=== PATIENT | female | born 1990 | race American Indian/Alaskan Native ===

== ENCOUNTER 2017-02-22 18:42 | Emergency (ER) | payer SELFPAY ==
[2017-02-22] MEDS ORDERED: NACL 0.9% 1000 ML 1,000 ML IV ONE (19:28)
[2017-02-22] MEDS ORDERED: TORADOL IV ONE (19:28)
[2017-02-22] MEDS ORDERED: DECADRON IV ONE (19:28)
--- NOTE | 2017-02-22 19:32 | Emergency Department Report ---
ED ENT HPI - General Chief complaint: Sore Throat Stated complaint: MARIA TERESA/THROAT PAIN Time Seen by Provider: 02/22/17 19:03 Source: patient Mode of arrival: Ambulatory Limitations: No Limitations - History of Present Illness Initial comments: This is a 26 erythema and presents with sore throat and left earache for the past 2 days. They state his sore throat has gotten worse since yesterday. Patient's complaining with difficulty swallowing, drooling, changes in voice. Patient denies nausea vomiting, shortness of breath, chest pain, fever, chills, abdominal pain or pelvic pain. Patient denies sick contact. Patient denies any allergic reaction. Patient took [id number] cough syrup that did not subside symptoms. Patient denies difficult breathing, dizziness, headache, loss of consciousness. At this time the patient does not seem toxic or ill in appearance. No signs distress noted. Patient is well-nourished. MD complaint: sore throat, ear pain -: Gradual, days(s) (2) Location: L ear, throat Severity: severe Severity scale (0 -10): 10 Quality: aching Consistency: constant Improves with: none Worsens with: swallowing Associated Symptoms: pain with swallowing, sore throat. denies: fever, cough, gum swelling, toothache, tinnitus, hearing loss, discharge from ear, rhinorrhea - Related Data Previous Rx's Medication Instructions Recorded Last Taken Type HYDROcodone/APAP 5-325 [[place] 1 each PO Q6HR PRN #14 tablet 05/06/15 Unknown Rx 5-325 mg TAB] Ibuprofen [Motrin 800 MG tab] 800 mg PO Q8HR PRN #30 tablet 05/06/15 Unknown Rx methOCARBAMOL [Robaxin TAB] 500 mg PO BID #20 tab 05/06/15 Unknown Rx Amoxicillin/K Clav Tab [Augmentin 1 tab PO Q12HR 10 Days 02/22/17 Unknown Rx 875 mg] Ibuprofen [Motrin 600 MG tab] 600 mg PO Q8H PRN 5 Days 02/22/17 Unknown Rx Prednisone [predniSONE] 40 mg PO QDAY 5 Days 02/22/17 Unknown Rx Allergies Allergy/AdvReac Type Severity Reaction Status Date / Time No Known Allergies Allergy Unverified 09/28/13 23:36 ED Dental HPI - General Chief complaint: Sore Throat Stated complaint: MARIA TERESA/THROAT PAIN Time Seen by Provider: 02/22/17 19:03 Source: patient Mode of arrival: Ambulatory Limitations: No Limitations - Related Data Previous Rx's Medication Instructions Recorded Last Taken Type HYDROcodone/APAP 5-325 [[place] 1 each PO Q6HR PRN #14 tablet 05/06/15 Unknown Rx 5-325 mg TAB] Ibuprofen [Motrin 800 MG tab] 800 mg PO Q8HR PRN #30 tablet 05/06/15 Unknown Rx methOCARBAMOL [Robaxin TAB] 500 mg PO BID #20 tab 05/06/15 Unknown Rx Amoxicillin/K Clav Tab [Augmentin 1 tab PO Q12HR 10 Days 02/22/17 Unknown Rx 875 mg] Ibuprofen [Motrin 600 MG tab] 600 mg PO Q8H PRN 5 Days 02/22/17 Unknown Rx Prednisone [predniSONE] 40 mg PO QDAY 5 Days 02/22/17 Unknown Rx Allergies Allergy/AdvReac Type Severity Reaction Status Date / Time No Known Allergies Allergy Unverified 09/28/13 23:36 ED Review of Systems ROS: Stated complaint: MARIA TERESA/THROAT PAIN Other details as noted in HPI Constitutional: denies: chills, fever Eyes: denies: eye pain, eye discharge, vision change ENT: ear pain (left), throat pain. denies: dental pain, hearing loss, epistaxis , congestion Respiratory: denies: cough, orthopnea, shortness of breath, SOB with exertion, SOB at rest, stridor, wheezing Cardiovascular: denies: chest pain, palpitations Endocrine: no symptoms reported Gastrointestinal: denies: abdominal pain, nausea, diarrhea Genitourinary: denies: urgency, dysuria, discharge Musculoskeletal: denies: back pain, joint swelling, arthralgia Skin: denies: rash, lesions Neurological: denies: headache, weakness, paresthesias Psychiatric: denies: anxiety, depression Hematological/Lymphatic: denies: easy bleeding, easy bruising ED Past Medical Hx - Past Medical History Previous Medical History?: Yes Hx Hypertension: Yes (during ) Hx Diabetes: Yes (gestational) Additional medical history: Diabetic and refuse to take medications for diabetes - Surgical History Past Surgical History?: No - Social History Smoking Status: Former Smoker Substance Use Type: Marijuana - Medications Home Medications: Home Medications Medication Instructions Recorded Confirmed Last Taken Type HYDROcodone/APAP 5-325 [[place] 1 each PO Q6HR PRN #14 tablet 05/06/15 Unknown Rx 5-325 mg TAB] Ibuprofen [Motrin 800 MG tab] 800 mg PO Q8HR PRN #30 tablet 05/06/15 Unknown Rx methOCARBAMOL [Robaxin TAB] 500 mg PO BID #20 tab 05/06/15 Unknown Rx Amoxicillin/K Clav Tab [Augmentin 1 tab PO Q12HR 10 Days 02/22/17 Unknown Rx 875 mg] Ibuprofen [Motrin 600 MG tab] 600 mg PO Q8H PRN 5 Days 02/22/17 Unknown Rx Prednisone [predniSONE] 40 mg PO QDAY 5 Days 02/22/17 Unknown Rx ED Physical Exam - General Limitations: No Limitations General appearance: alert, in no apparent distress - Head Head exam: Present: atraumatic, normocephalic - Eye Eye exam: Present: normal appearance, PERRL, EOMI - ENT ENT exam: Present: mucous membranes moist, TM's normal bilaterally, normal external ear exam - Expanded ENT Exam Expanded Mouth exam: Present: drooling, muffled voice, tongue normal. Absent: trismus, tongue elevation, laceration Teeth exam: Present: normal inspection Throat exam: Positive: tonsillar erythema, tonsillomegaly (4+), tonsillar exudate - Neck Neck exam: Present: normal inspection, full ROM, lymphadenopathy. Absent: tenderness, meningismus - Respiratory Respiratory exam: Present: normal lung sounds bilaterally. Absent: respiratory distress, wheezes, rales, rhonchi, stridor, chest wall tenderness, accessory muscle use, decreased breath sounds, prolonged expiratory - Cardiovascular Cardiovascular Exam: Present: regular rate, normal rhythm. Absent: systolic murmur, diastolic murmur, rubs, gallop - GI/Abdominal GI/Abdominal exam: Present: soft, normal bowel sounds. Absent: distended, tenderness, guarding, rebound, rigid - Extremities Exam Extremities exam: Present: normal inspection, full ROM, normal capillary refill. Absent: tenderness, pedal edema, joint swelling, calf tenderness - Back Exam Back exam: Present: normal inspection, full ROM. Absent: tenderness, CVA tenderness (R), CVA tenderness (L) - Neurological Exam Neurological exam: Present: alert, oriented X3, CN II-XII intact, normal gait - Psychiatric Psychiatric exam: Present: normal affect, normal mood - Skin Skin exam: Present: warm, dry, intact, normal color. Absent: rash ED Course Vital Signs 02/22/17 02/22/17 18:51 22:10 Temperature 98.5 F Pulse Rate 101 H 71 Respiratory 20 16 Rate Blood Pressure 138/77 Blood Pressure 126/71 [Left] O2 Sat by Pulse 100 100 Oximetry Vital Signs 02/22/17 02/22/17 18:51 22:10 Temperature 98.5 F Pulse Rate 101 H 71 Respiratory 20 16 Rate Blood Pressure 138/77 Blood Pressure 126/71 [Left] O2 Sat by Pulse 100 100 Oximetry - Reevaluation(s) Reevaluation #1: 02/22/17 22:08 Patient reevaluated. Patient stated feels much better with pain levels to a 10. Patient denies shortness of breath or dyspnea. Patient is currently smiling and talkative. No signs of distress noted. ED Medical Decision Making - Lab Data Result diagrams: 02/22/17 19:53 02/22/17 19:53 - Medical Decision Making Ed course: 25 erythema that presents with tonsillitis and pharyngitis 1- patient received clindamycin 600 mg IV in the ED 2- patient also received 1 L of normal saline 3- patient received 10 mg IV Decadron 4- CT of the neck with contrast obtained: Results: Bilateral tonsillar areas are prominent. No focal abscess is seen. Cervical lymphadenopathy is likely reactive. Thyroid gland appears mildly diffusely prominent. Correlate clinically. 5- Dr. Ramos was consulted about the patient and agrees to treatment plan 6- at this time the patient does not seem toxic or ill in appearance. No signs of distress noted. 7- patient received Augmentin, prednisone, ibuprofen at the time of discharge. 8- patient agrees to discharge treatment and plan of care. No further questions noted by the patient. Critical care attestation.: If time is entered above; I have spent that time in minutes in the direct care of this critically ill patient, excluding procedure time. ED Disposition Clinical Impression: Tonsillitis Pharyngitis Qualifiers: Pharyngitis/tonsillitis etiology: unspecified etiology Qualified Code(s): J02.9 - Acute pharyngitis, unspecified Disposition: DISCHARGED TO HOME OR SELFCARE Is pt being admited?: No Does the pt Need Aspirin: No Condition: Stable Instructions: Pharyngitis (ED), Tonsillitis (ED) Additional Instructions: Please follow-up with your primary care doctor in 3-5 days or if symptoms worsen report back to emergency room Take full course of antibiotics and steroids as prescribed Prescriptions: Amoxicillin/K Clav Tab [Augmentin 875 mg] 1 tab PO Q12HR 10 Days Ibuprofen [Motrin 600 MG tab] 600 mg PO Q8H PRN 5 Days PRN Reason: Pain Prednisone [predniSONE] 40 mg PO QDAY 5 Days Referrals: PRIMARY CAREMD [Primary Care Provider] - 3-5 Days [facility] [Outside] - 3-5 Days [facility] [Outside] - 3-5 Days DANE ANDRES MD [Staff Physician] - 3-5 Days Forms: Work/School Release Form(ED)
[2017-02-22 19:59] LABS: Basophils % (Auto) 0.5 % (0.0-1.8); Eosinophils % (Auto) 0.4 % (0.0-4.3); Mean Corpuscular HGB Conc 30 % (30-34); Platelet Count 289 K/mm3 (140-440); White Blood Count 18.5 K/mm3 (4.5-11.0)
[2017-02-22 20:01] LABS: Hematocrit 29.7 % (30.3-42.9); Hemoglobin 8.8 gm/dl (10.1-14.3); Mean Corpuscular Hemoglobin 19 pg (28-32); Mean Corpuscular Volume 63 fl (79-97)
[2017-02-22] MEDS ORDERED: CLEOCIN 600 MG/50 mL 600 MG/50 ML BAG IV ONE (20:05)
[2017-02-22 20:21] LABS: Anion Gap 17 mmol/L; BUN/Creatinine Ratio 8.57; Blood Urea Nitrogen 6 mg/dL (7-17); Calcium 9.3 mg/dL (8.4-10.2); Carbon Dioxide 25 mmol/L (22-30); Chloride 98.9 mmol/L (98-107); Glucose 112 mg/dL (65-100); Potassium 4.1 mmol/L (3.6-5.0); Sodium 137 mmol/L (137-145)
--- NOTE | 2017-02-22 21:58 | Cat Scan Report ---
FINAL REPORT PROCEDURE: CT NECK W CON TECHNIQUE: Computerized axial tomography of the soft tissue neck was performed following the IV injection of iodinated nonionic contrast. HISTORY: tonsillitis/rule out peritonsillar abscess COMPARISON: No prior studies are available for comparison. FINDINGS: Skull and scalp: Normal. Paranasal sinuses: Normal. Nasopharynx: Normal . Oral cavity: Bilateral tonsillar pillars are prominent. No focal abscess is identified. Epiglottis/vallecula: Normal . Larynx/pyriform sinuses: Normal . Thyroid gland: Thyroid gland appears mildly diffusely prominent. Lymph nodes: Bilateral cervical adenopathy. Bilateral level 2 cervical lymph nodes are enlarged, measuring up to 15 millimeters short axis. Salivary glands: Normal . Upper thorax: Normal . IMPRESSION: Bilateral tonsillar pillars are prominent. No focal abscess is seen. Cervical lymphadenopathy is likely reactive. Thyroid gland appears mildly diffusely prominent. Correlate clinically.
[2017-02-22 22:11] VITALS: BP 126/71
== END 2017-02-22 22:20 | disposition home or self-care (01) ==
LOC: ED 18:42
DX: J03.90 Acute tonsillitis, unspecified (principal); J02.9 Acute pharyngitis, unspecified
CPT/HCPCS: 36415; 70491; 80048; 84703; 85025; 87430; 96365; 96375; 99284; J1100; J1885; J7030; Q9967

== ENCOUNTER 2018-02-10 08:37 | Emergency (ER) | payer SELFPAY ==
[2018-02-10] MEDS ORDERED: DUONEB *Not for PRN Use IH ONE (11:57)
--- NOTE | 2018-02-10 12:00 | Emergency Department Report ---
Minor Respiratory - HPI Chief Complaint: Upper Respiratory Infection Stated Complaint: EAR CLOGGED, NOSE&COUGH PAIN Time Seen by Provider: 02/10/18 11:53 Duration: 3 Days Severity: moderate Minor Respiratory: Yes Rhinorrhea, Yes Able to Tolerate Fluids, Yes Ear Pain, Yes Cough, Yes Shortness of Breath, No Sore Throat, No Sick Contacts, No Hemoptysis, No Chest Pain, No Fever Other History: Reports URI sx with cough/wheezing x 3 days. ED Review of Systems ROS: Stated complaint: EAR CLOGGED, NOSE&COUGH PAIN Other details as noted in HPI Comment: All other systems reviewed and negative Constitutional: denies: chills, fever Eyes: denies: eye pain, eye discharge, vision change ENT: ear pain, congestion. denies: throat pain Respiratory: cough, shortness of breath, wheezing Cardiovascular: denies: chest pain, palpitations Endocrine: no symptoms reported Gastrointestinal: denies: abdominal pain, nausea, diarrhea Genitourinary: denies: urgency, dysuria, discharge Musculoskeletal: denies: back pain, joint swelling, arthralgia Skin: denies: rash, lesions Neurological: denies: headache, weakness, paresthesias Psychiatric: denies: anxiety, depression Hematological/Lymphatic: denies: easy bleeding, easy bruising ED Past Medical Hx - Past Medical History Hx Hypertension: Yes (during ) Hx Diabetes: Yes (gestational) Additional medical history: Diabetic and refuse to take medications for diabetes - Surgical History Past Surgical History?: No - Social History Smoking Status: Never Smoker Substance Use Type: None - Medications Home Medications: Home Medications Medication Instructions Recorded Confirmed Last Taken Type ALBUTEROL Inhaler [ProAir HFA 2 puff IH QID PRN #200 inhalation 02/10/18 Unknown Rx Inhaler] Amoxicillin/Potassium Clav 1 each PO BID #20 tablet 02/10/18 Unknown Rx [Augmentin 875-125 Tablet] Prednisone [predniSONE 10 mg 10 mg PO .TAPER #1 tab.ds.pk 02/10/18 Unknown Rx (6-Day Pack, 21 Tabs)] Minor Respiratory Exam - Exam General: Vital signs noted. No distress. Alert and acting appropriately. HEENT: Yes Moist Mucous Membranes, Yes Rhinorrhea, No Pharyngeal Erythema, No Pharyngeal Exudates, No Conjuctival Injection, No Frontal Tenderness, No Maxillary Tenderness Ear: Left TM Erythema, Both TM Bulge, Neither EAC Pain, Neither EAC Discharge Neck: Yes Supple, No Adenopathy Lungs: Yes Wheezes, Yes Cough, No Good Air Exchange, No Ronchi, No Stridor, No Labored Respirations, No Retractions, No Use of Accessory Muscles, No Other Abnormal Lung Sounds Heart: Yes Regular, No Murmur Abdomen: Yes Normal Bowel Sounds, No Tenderness, No Peritoneal Signs Skin: No Rash, No Edema Neurologic: Alert and oriented, no deficits. Musculoskeletal: Unremarkable. ED Course Vital Signs 02/10/18 09:16 Temperature 97.9 F Pulse Rate 88 Respiratory 18 Rate Blood Pressure 124/54 O2 Sat by Pulse 95 Oximetry - Reevaluation(s) Reevaluation #1: 02/10/18 13:33 Pt stable for d/c. ED Medical Decision Making - Radiology Data Radiology results: report reviewed naf - Medical Decision Making Pt presents with URI, Duoneb given w/ improvement in exam and sx. Will treat with abx, steroid, and inhaler prn. Supportive care discussed - Differential Diagnosis bronchitis, pna, sinusitis Critical care attestation.: If time is entered above; I have spent that time in minutes in the direct care of this critically ill patient, excluding procedure time. ED Disposition Clinical Impression: Acute sinusitis Qualifiers: Sinusitis location: unspecified location Recurrence: not specified as recurrent Qualified Code(s): J01.90 - Acute sinusitis, unspecified Acute bronchitis Qualifiers: Bronchitis organism: unspecified organism Qualified Code(s): J20.9 - Acute bronchitis, unspecified Disposition: TO HOME OR SELFCARE Is pt being admited?: No Condition: Good Instructions: Acute Bronchitis (ED), Sinusitis (ED) Prescriptions: ALBUTEROL Inhaler [ProAir HFA Inhaler] 2 puff IH QID PRN #200 inhalation PRN Reason: Shortness Of Breath Amoxicillin/Potassium Clav [Augmentin 875-125 Tablet] 1 each PO BID #20 tablet Prednisone [predniSONE 10 mg (6-Day Pack, 21 Tabs)] 10 mg PO .TAPER #1 tab.ds.pk Referrals: PRIMARY MD NELLA [Primary Care Provider] - 3-5 Days DANE SANCHEZ MD [Staff Physician] - 3-5 Days Time of Disposition: 13:37
--- NOTE | 2018-02-10 13:05 | XRay Report ---
CHEST 2 VIEWS INDICATION: Cough, shortness of breath. COMPARISON: None similar. FINDINGS: PA and lateral chest radiographs demonstrate normal cardiomediastinal silhouette. Clear lungs. Intact bones. CONCLUSION: No acute disease in the chest. Thank you for the opportunity to participate in this patient's care.
[2018-02-10 13:51] VITALS: BP 125/51
== END 2018-02-10 13:52 | disposition home or self-care (01) ==
LOC: ED 08:37
DX: J01.90 Acute sinusitis, unspecified (principal); J20.9 Acute bronchitis, unspecified
CPT/HCPCS: 71046; 94640; 96372; 99283; J2930

== ENCOUNTER 2018-10-23 16:58 | Emergency (ER) | payer MEDICAID ==
[2018-10-23 17:16] VITALS: BP 111/60
[2018-10-23] MEDS ORDERED: BICILLIN L-A IM STA (18:12)
[2018-10-23] MEDS ORDERED: DECADRON PO STA (18:12)
[2018-10-23] MEDS ORDERED: PERCOCET 5/325 PO STA (18:12)
--- NOTE | 2018-10-23 18:31 | Emergency Department Report ---
ED ENT HPI - General Chief complaint: Sore Throat Stated complaint: THROAT PAIN/FLU SYM Time Seen by Provider: 10/23/18 18:11 Source: patient Mode of arrival: Ambulatory Limitations: No Limitations - History of Present Illness Initial comments: 27-year-old female with emergency department complaining of continued sore throat abscess was department requesting more medication for pain. She was seen about 2 days ago and started on amoxicillin hemostased is still throbbing and pain with swallowing. She reports no drooling, trouble breathing. MD complaint: sore throat Location: throat Quality: constant Consistency: constant Improves with: none Worsens with: none Associated Symptoms: sore throat. denies: cough, gum swelling, toothache, pain with swallowing - Related Data Previous Rx's Medication Instructions Recorded Last Taken Type ALBUTEROL Inhaler (OR & NICU) 2 puff IH QID PRN #200 inhalation 02/10/18 Unknown Rx [ProAir HFA Inhaler] Amoxicillin/Potassium Clav 1 each PO BID #20 tablet 02/10/18 Unknown Rx [Augmentin 875-125 Tablet] Prednisone [predniSONE 10 mg 10 mg PO .TAPER #1 tab.ds.pk 02/10/18 Unknown Rx (6-Day Pack, 21 Tabs)] Lidocaine Viscous 2% 5 ml MM Q3H PRN #120 udc 10/23/18 Unknown Rx Allergies Allergy/AdvReac Type Severity Reaction Status Date / Time No Known Allergies Allergy Unverified 09/28/13 23:36 ED Dental HPI - General Chief complaint: Sore Throat Stated complaint: THROAT PAIN/FLU SYM Time Seen by Provider: 10/23/18 18:11 Source: patient Mode of arrival: Ambulatory Limitations: No Limitations - Related Data Previous Rx's Medication Instructions Recorded Last Taken Type ALBUTEROL Inhaler (OR & NICU) 2 puff IH QID PRN #200 inhalation 02/10/18 Unknown Rx [ProAir HFA Inhaler] Amoxicillin/Potassium Clav 1 each PO BID #20 tablet 02/10/18 Unknown Rx [Augmentin 875-125 Tablet] Prednisone [predniSONE 10 mg 10 mg PO .TAPER #1 tab.ds.pk 02/10/18 Unknown Rx (6-Day Pack, 21 Tabs)] Lidocaine Viscous 2% 5 ml MM Q3H PRN #120 udc 10/23/18 Unknown Rx Allergies Allergy/AdvReac Type Severity Reaction Status Date / Time No Known Allergies Allergy Unverified 09/28/13 23:36 ED Review of Systems ROS: Stated complaint: THROAT PAIN/FLU SYM Other details as noted in HPI Constitutional: denies: chills, fever Eyes: denies: eye pain, eye discharge, vision change ENT: throat pain. denies: ear pain Respiratory: denies: cough, shortness of breath, wheezing Cardiovascular: denies: chest pain, palpitations Endocrine: no symptoms reported Gastrointestinal: denies: abdominal pain, nausea, diarrhea Genitourinary: denies: urgency, dysuria, discharge Musculoskeletal: denies: back pain, joint swelling, arthralgia Skin: denies: rash, lesions Neurological: denies: headache, weakness, paresthesias Psychiatric: denies: anxiety, depression Hematological/Lymphatic: denies: easy bleeding, easy bruising ED Past Medical Hx - Past Medical History Hx Hypertension: Yes (during ) Hx Diabetes: Yes (gestational) Additional medical history: Diabetic and refuse to take medications for diabetes - Social History Smoking Status: Never Smoker Substance Use Type: None - Medications Home Medications: Home Medications Medication Instructions Recorded Confirmed Last Taken Type ALBUTEROL Inhaler (OR & NICU) 2 puff IH QID PRN #200 inhalation 02/10/18 Unknown Rx [ProAir HFA Inhaler] Amoxicillin/Potassium Clav 1 each PO BID #20 tablet 02/10/18 Unknown Rx [Augmentin 875-125 Tablet] Prednisone [predniSONE 10 mg 10 mg PO .TAPER #1 tab.ds.pk 02/10/18 Unknown Rx (6-Day Pack, 21 Tabs)] Lidocaine Viscous 2% 5 ml MM Q3H PRN #120 udc 10/23/18 Unknown Rx ED Physical Exam - General Limitations: No Limitations General appearance: alert, in no apparent distress - Head Head exam: Present: atraumatic, normocephalic - Eye Eye exam: Present: normal appearance, PERRL, EOMI Pupils: Present: normal accommodation - ENT ENT exam: Present: normal exam, mucous membranes moist, other (posterior pharynx erythema with some edema. Tongue and uvula is midline. Scant exudate) - Neck Neck exam: Present: normal inspection, lymphadenopathy - Respiratory Respiratory exam: Present: normal lung sounds bilaterally. Absent: respiratory distress, rales, rhonchi, chest wall tenderness, accessory muscle use - Cardiovascular Cardiovascular Exam: Present: regular rate, normal rhythm. Absent: systolic murmur, diastolic murmur, rubs, gallop - GI/Abdominal GI/Abdominal exam: Present: soft, normal bowel sounds. Absent: hyperactive bowel sounds, mass, pulsatile mass - Extremities Exam Extremities exam: Present: normal inspection, full ROM - Back Exam Back exam: Present: normal inspection - Neurological Exam Neurological exam: Present: alert, oriented X3 - Psychiatric Psychiatric exam: Present: normal affect, normal mood - Skin Skin exam: Present: warm, dry, intact, normal color. Absent: rash ED Course Vital Signs 10/23/18 17:13 Temperature 98.1 F Pulse Rate 76 Respiratory 18 Rate Blood Pressure 111/60 O2 Sat by Pulse 100 Oximetry ED Medical Decision Making - Medical Decision Making Patient reports some issues taken amoxicillin pills repetitively with a sore throat and presents for alternative treatment and medication help with the swelling. Discussed with her the treatment option for IM injection and disconti nuing the utilization of amoxicillin Critical care attestation.: If time is entered above; I have spent that time in minutes in the direct care of this critically ill patient, excluding procedure time. ED Disposition Clinical Impression: Strep pharyngitis Disposition: DC-01 TO HOME OR SELFCARE Is pt being admited?: No Does the pt Need Aspirin: No Condition: Stable Instructions: Strep Throat (ED) Referrals: [facility] [Provider Group] - 3-5 Days
== END 2018-10-23 19:26 | disposition home or self-care (01) ==
LOC: ED 16:58
DX: J02.0 Streptococcal pharyngitis (principal); I10 Essential (primary) hypertension; E11.9 Type 2 diabetes mellitus without complications
CPT/HCPCS: 96372; 99282; J0561; J1100

== ENCOUNTER 2019-01-07 09:07 | Emergency (ER) | payer MEDICAID ==
[2019-01-07 09:15] VITALS: BP 145/78
[2019-01-07] MEDS ORDERED: AUGMENTIN 875 MG PO ONE (09:32)
[2019-01-07] MEDS ORDERED: DECADRON IM ONE (09:32)
[2019-01-07] MEDS ORDERED: IBUPROFEN PO ONE (09:32)
[2019-01-07] MEDS ORDERED: LIDOCAINE VISCOUS 2% MM ONE (09:33)
[2019-01-07] MEDS ORDERED: BICILLIN L-A IM ONE (09:46)
--- NOTE | 2019-01-07 09:49 | Emergency Department Report ---
ED ENT HPI - General Chief complaint: Sore Throat Stated complaint: SORE THROAT Time Seen by Provider: 01/07/19 09:27 Source: patient Mode of arrival: Ambulatory Limitations: No Limitations - History of Present Illness Initial comments: This is a 28-year-old female nontoxic, well nourished in appearance, no acute signs of distress presents to the ED with c/o of sore throat. Patient describes sore throat as swallowing razer blades. Patient denies any fever, chills, headache, stiff neck, nausea, vomiting, chest pain, shortness of breath, numbness or tingling. Patient denies any drooling or hoarseness. Patient denies any allergies or significant past medical history. MD complaint: sore throat -: days(s) Location: throat Severity: mild Severity scale (0 -10): 8 Quality: aching Consistency: constant Improves with: none Worsens with: swallowing Associated Symptoms: pain with swallowing, sore throat. denies: fever, cough, gum swelling, toothache, tinnitus, hearing loss, discharge from ear, rhinorrhea - Related Data Previous Rx's Medication Instructions Recorded Last Taken Type ALBUTEROL Inhaler (OR & NICU) 2 puff IH QID PRN #200 inhalation 02/10/18 Unknown Rx [ProAir HFA Inhaler] Amoxicillin/Potassium Clav 1 each PO BID #20 tablet 02/10/18 Unknown Rx [Augmentin 875-125 Tablet] Prednisone [predniSONE 10 mg 10 mg PO .TAPER #1 tab.ds.pk 02/10/18 Unknown Rx (6-Day Pack, 21 Tabs)] Lidocaine Viscous 2% 5 ml MM Q3H PRN #120 udc 10/23/18 Unknown Rx Ibuprofen [Motrin] 600 mg PO Q8H PRN #20 tablet 01/07/19 Unknown Rx Nystas/Diphen/Xyl Visc/Mylanta 15 ml MM Q6H PRN 5 Days ml 01/07/19 Unknown Rx [Magic Mouthwash] Allergies Allergy/AdvReac Type Severity Reaction Status Date / Time No Known Allergies Allergy Unverified 09/28/13 23:36 ED Dental HPI - General Chief complaint: Sore Throat Stated complaint: SORE THROAT Time Seen by Provider: 01/07/19 09:27 Source: patient Mode of arrival: Ambulatory Limitations: No Limitations - Related Data Previous Rx's Medication Instructions Recorded Last Taken Type ALBUTEROL Inhaler (OR & NICU) 2 puff IH QID PRN #200 inhalation 02/10/18 Unknown Rx [ProAir HFA Inhaler] Amoxicillin/Potassium Clav 1 each PO BID #20 tablet 02/10/18 Unknown Rx [Augmentin 875-125 Tablet] Prednisone [predniSONE 10 mg 10 mg PO .TAPER #1 tab.ds.pk 02/10/18 Unknown Rx (6-Day Pack, 21 Tabs)] Lidocaine Viscous 2% 5 ml MM Q3H PRN #120 udc 10/23/18 Unknown Rx Ibuprofen [Motrin] 600 mg PO Q8H PRN #20 tablet 01/07/19 Unknown Rx Nystas/Diphen/Xyl Visc/Mylanta 15 ml MM Q6H PRN 5 Days ml 01/07/19 Unknown Rx [Magic Mouthwash] Allergies Allergy/AdvReac Type Severity Reaction Status Date / Time No Known Allergies Allergy Unverified 09/28/13 23:36 ED Review of Systems ROS: Stated complaint: SORE THROAT Other details as noted in HPI Constitutional: denies: chills, fever Eyes: denies: eye pain, eye discharge, vision change ENT: throat pain. denies: ear pain Respiratory: denies: cough, shortness of breath, wheezing Cardiovascular: denies: chest pain, palpitations Endocrine: no symptoms reported Gastrointestinal: denies: abdominal pain, nausea, diarrhea Genitourinary: denies: urgency, dysuria, discharge Musculoskeletal: denies: back pain, joint swelling, arthralgia Skin: denies: rash, lesions Neurological: denies: headache, weakness, paresthesias Psychiatric: denies: anxiety, depression Hematological/Lymphatic: denies: easy bleeding, easy bruising ED Past Medical Hx - Past Medical History Previous Medical History?: No Hx Hypertension: Yes (during ) Hx Diabetes: Yes (gestational) Additional medical history: Diabetic and refuse to take medications for diabetes - Surgical History Past Surgical History?: No - Social History Smoking Status: Current Some Day Smoker Substance Use Type: Marijuana - Medications Home Medications: Home Medications Medication Instructions Recorded Confirmed Last Taken Type ALBUTEROL Inhaler (OR & NICU) 2 puff IH QID PRN #200 inhalation 02/10/18 Unknown Rx [ProAir HFA Inhaler] Amoxicillin/Potassium Clav 1 each PO BID #20 tablet 02/10/18 Unknown Rx [Augmentin 875-125 Tablet] Prednisone [predniSONE 10 mg 10 mg PO .TAPER #1 tab.ds.pk 02/10/18 Unknown Rx (6-Day Pack, 21 Tabs)] Lidocaine Viscous 2% 5 ml MM Q3H PRN #120 udc 10/23/18 Unknown Rx Ibuprofen [Motrin] 600 mg PO Q8H PRN #20 tablet 01/07/19 Unknown Rx Nystas/Diphen/Xyl Visc/Mylanta 15 ml MM Q6H PRN 5 Days ml 01/07/19 Unknown Rx [Magic Mouthwash] ED Physical Exam - General Limitations: No Limitations General appearance: alert, in no apparent distress - Head Head exam: Present: atraumatic, normocephalic - Eye Eye exam: Present: normal appearance - Expanded ENT Exam Expanded Ear exam: Present: normal external inspection Mouth exam: Present: normal external inspection. Absent: drooling, trismus, muffled voice Teeth exam: Present: normal inspection Throat exam: Positive: tonsillar erythema, tonsillomegaly (2+), other (uvula m idline. No abscess or swelling noted.). Negative: tonsillar exudate, R peritonsillar mass, L peritonsillar mass - Neck Neck exam: Present: normal inspection, full ROM, lymphadenopathy (bilateral tonsillar). Absent: tenderness, meningismus - Respiratory Respiratory exam: Present: normal lung sounds bilaterally. Absent: respiratory distress, wheezes, rales, chest wall tenderness, accessory muscle use, decreased breath sounds, prolonged expiratory - Cardiovascular Cardiovascular Exam: Present: regular rate, normal rhythm, normal heart sounds. Absent: irregular rhythm, systolic murmur, diastolic murmur, rubs, gallop - Extremities Exam Extremities exam: Present: normal inspection, full ROM - Back Exam Back exam: Present: normal inspection, full ROM - Neurological Exam Neurological exam: Present: alert, oriented X3 - Psychiatric Psychiatric exam: Present: normal affect, normal mood - Skin Skin exam: Present: warm, dry, intact, normal color. Absent: rash ED Course Vital Signs 01/07/19 09:13 Temperature 99.6 F Pulse Rate 100 H Respiratory 22 Rate Blood Pressure 145/78 O2 Sat by Pulse 99 Oximetry - Reevaluation(s) Reevaluation #1: 01/07/19 09:50 Patient is speaking in full sentences with no signs of distress noted. ED Medical Decision Making - Medical Decision Making This is a 28-year-old female that presents with strep pharyngitis. Patient is stable was examined by me. There is no drooling. No tonsillar abscess noted. Uvula is midline. Strep swab positive. Patient received Bicillin IM in the ED. she also received Decadron for tonsillar inflammation. Vital signs are stable. Patient is not febrile and normal heart rate. Patient was instructed to Follow- up with a primary care doctor in 3-5 days or if symptoms worsen and continue return to emergency room as soon as possible. At time of discharge, the patient does not seem toxic or ill in appearance. No acute signs of distress noted. Patient agrees to discharge treatment plan of care. No further questions noted by the patient. Critical care attestation.: If time is entered above; I have spent that time in minutes in the direct care of this critically ill patient, excluding procedure time. ED Disposition Clinical Impression: Strep pharyngitis Disposition: DC- TO HOME OR SELFCARE Is pt being admited?: No Does the pt Need Aspirin: No Condition: Stable Instructions: Strep Throat (ED) Additional Instructions: Follow-up with a primary care/ENT doctor in 3-5 days or if symptoms worsen and continue return to emergency room as soon as possible. Prescriptions: Nystas/Diphen/Xyl Visc/Mylanta [Magic Mouthwash] 15 ml MM Q6H PRN 5 Days ml PRN Reason: Sore Throat Ibuprofen [Motrin] 600 mg PO Q8H PRN #20 tablet PRN Reason: Pain Referrals: PRIMARY MD NELLA [Referring] - 3-5 Days DANE ANDRES MD [Staff Physician] - 3-5 Days [facility] [Outside] - 3-5 Days [facility] [Outside] - 3-5 Days Forms: Work/School Release Form(ED)
== END 2019-01-07 10:32 | disposition home or self-care (01) ==
LOC: ED 09:07
DX: J02.0 Streptococcal pharyngitis (principal); F17.200 Nicotine dependence, unspecified, uncomplicated; F12.10 Cannabis abuse, uncomplicated; I10 Essential (primary) hypertension; E11.9 Type 2 diabetes mellitus without complications; Z79.899 Other long term (current) drug therapy
CPT/HCPCS: 87430; 96372; 99283; J0561; J1100

== ENCOUNTER 2019-07-23 19:13 | Emergency (ER) | payer SELFPAY ==
[2019-07-23] MEDS ORDERED: ONDANSETRON 4 MG ODT TAB PO ONE (20:46)
--- NOTE | 2019-07-23 20:53 | Emergency Department Report ---
ED ENT HPI - General Chief complaint: Sore Throat Stated complaint: SORE THROAT Time Seen by Provider: 07/23/19 20:46 Source: patient Mode of arrival: Ambulatory Limitations: No Limitations - History of Present Illness Initial comments: This is a 28-year-old female that presents to the ER with sore throat, fever, and vomiting for 3 days. Patient states is difficult to swallow. She denies any drooling or hoarseness. Reports vomiting started today anytime she attempt to drink something. Reports a history of recurrent strep throat. Patient denies any other symptoms. Denies any fever, chills, headache, nausea, vomiting, chest pain or SOB. Denies any other complaints. MD complaint: sore throat Onset/Timin -: days(s) Location: throat Severity: moderate Severity scale (0 -10): 10 Quality: stabbing Consistency: constant Improves with: none Worsens with: swallowing, eating Associated Symptoms: fever, pain with swallowing, sore throat. denies: cough, gum swelling, toothache, tinnitus, hearing loss, discharge from ear, rhinorrhea - Related Data Previous Rx's Medication Instructions Recorded Last Taken Type ALBUTEROL Inhaler (OR & NICU) 2 puff IH QID PRN #200 inhalation 02/10/18 Unknown Rx [ProAir HFA Inhaler] Amoxicillin/Potassium Clav 1 each PO BID #20 tablet 02/10/18 Unknown Rx [Augmentin 875-125 Tablet] Prednisone [predniSONE 10 mg 10 mg PO .TAPER #1 tab.ds.pk 02/10/18 Unknown Rx (6-Day Pack, 21 Tabs)] Lidocaine Viscous 2% 5 ml MM Q3H PRN #120 udc 10/23/18 Unknown Rx Nystas/Diphen/Xyl Visc/Mylanta 15 ml MM Q6H PRN 5 Days ml 01/07/19 Unknown Rx [Magic Mouthwash] Ibuprofen [Motrin 600 MG tab] 600 mg PO Q8H PRN #20 tablet 06/16/19 Unknown Rx Allergies Allergy/AdvReac Type Severity Reaction Status Date / Time No Known Allergies Allergy Verified 07/23/19 19:17 ED Dental HPI - General Chief complaint: Sore Throat Stated complaint: SORE THROAT Time Seen by Provider: 07/23/19 20:46 Source: patient Mode of arrival: Ambulatory Limitations: No Limitations - Related Data Previous Rx's Medication Instructions Recorded Last Taken Type ALBUTEROL Inhaler (OR & NICU) 2 puff IH QID PRN #200 inhalation 02/10/18 Unknown Rx [ProAir HFA Inhaler] Amoxicillin/Potassium Clav 1 each PO BID #20 tablet 02/10/18 Unknown Rx [Augmentin 875-125 Tablet] Prednisone [predniSONE 10 mg 10 mg PO .TAPER #1 tab.ds.pk 02/10/18 Unknown Rx (6-Day Pack, 21 Tabs)] Lidocaine Viscous 2% 5 ml MM Q3H PRN #120 udc 10/23/18 Unknown Rx Nystas/Diphen/Xyl Visc/Mylanta 15 ml MM Q6H PRN 5 Days ml 01/07/19 Unknown Rx [Magic Mouthwash] Ibuprofen [Motrin 600 MG tab] 600 mg PO Q8H PRN #20 tablet 06/16/19 Unknown Rx Allergies Allergy/AdvReac Type Severity Reaction Status Date / Time No Known Allergies Allergy Verified 07/23/19 19:17 ED Review of Systems ROS: Stated complaint: SORE THROAT Other details as noted in HPI Constitutional: fever. denies: chills ENT: throat pain. denies: ear pain, dental pain, hearing loss, epistaxis, congestion Respiratory: denies: cough, shortness of breath, wheezing Cardiovascular: as per HPI Gastrointestinal: nausea, vomiting. denies: abdominal pain, diarrhea Skin: denies: rash, lesions Neurological: denies: headache, weakness, paresthesias Psychiatric: denies: anxiety, depression ED Past Medical Hx - Past Medical History Hx Hypertension: Yes (during ) Hx Diabetes: Yes (gestational) Additional medical history: Diabetic and refuse to take medications for diabetes - Social History Smoking Status: Never Smoker Substance Use Type: Marijuana - Medications Home Medications: Home Medications Medication Instructions Recorded Confirmed Last Taken Type ALBUTEROL Inhaler (OR & NICU) 2 puff IH QID PRN #200 inhalation 02/10/18 Unknown Rx [ProAir HFA Inhaler] Amoxicillin/Potassium Clav 1 each PO BID #20 tablet 02/10/18 Unknown Rx [Augmentin 875-125 Tablet] Prednisone [predniSONE 10 mg 10 mg PO .TAPER #1 tab.ds.pk 02/10/18 Unknown Rx (6-Day Pack, 21 Tabs)] Lidocaine Viscous 2% 5 ml MM Q3H PRN #120 udc 10/23/18 Unknown Rx Nystas/Diphen/Xyl Visc/Mylanta 15 ml MM Q6H PRN 5 Days ml 01/07/19 Unknown Rx [Magic Mouthwash] Ibuprofen [Motrin 600 MG tab] 600 mg PO Q8H PRN #20 tablet 06/16/19 Unknown Rx ED Physical Exam - General Limitations: No Limitations General appearance: alert, in no apparent distress, obese (morbidly) - ENT ENT exam: Present: mucous membranes moist, TM's normal bilaterally, normal external ear exam. Absent: normal orophraynx (erythematous enlarged tonsils with exudate, uvula midline) - Respiratory Respiratory exam: Present: normal lung sounds bilaterally. Absent: respiratory distress - Cardiovascular Cardiovascular Exam: Present: regular rate, normal rhythm. Absent: systolic murmur, diastolic murmur, rubs, gallop - GI/Abdominal GI/Abdominal exam: Present: soft, normal bowel sounds - Neurological Exam Neurological exam: Present: alert, oriented X3, normal gait - Psychiatric Psychiatric exam: Present: normal affect, normal mood - Skin Skin exam: Present: warm, dry, intact, normal color. Absent: rash ED Course Vital Signs 07/23/19 07/23/19 07/23/19 21:14 21:15 21:41 Temperature 101.2 F H Pulse Rate 96 H Respiratory 18 18 18 Rate Blood Pressure 116/80 O2 Sat by Pulse 95 Oximetry 07/23/19 07/24/19 22:20 01:03 Temperature 102.3 F H Pulse Rate 120 H Respiratory 20 Rate Blood Pressure O2 Sat by Pulse Oximetry Critical care attestation.: If time is entered above; I have spent that time in minutes in the direct care of this critically ill patient, excluding procedure time. ED Disposition Clinical Impression: Left against medical advice Disposition: Z-07 ELOPED Is pt being admited?: No Does the pt Need Aspirin: No Condition: Stable Instructions: Pharyngitis (ED) Referrals: PRIMARY CARE, [Primary Care Provider] - 3-5 Days
[2019-07-23] MEDS ORDERED: ACETAMINOPHEN 325 MG/10.15 ML ORAL LIQD UNIT DOSE PO ONE (21:11)
[2019-07-23] MEDS ORDERED: ACETAMINOPHEN 325 MG/10.15 ML ORAL LIQD UNIT DOSE ONE (21:13)
[2019-07-23 21:15] VITALS: BP 116/80
[2019-07-23] MEDS ORDERED: PENICILLIN G BENZATHINE 1.2 MILLION UNIT/2 ML INJ IM ONE ×2 (21:52→21:57)
[2019-07-23] MEDS ORDERED: dexAMETHasone 20 MG/5 ML VIAL ONE (21:52)
[2019-07-23] MEDS ORDERED: dexAMETHasone 20 MG/5 ML VIAL IM ONE (21:57)
[2019-07-23] MEDS ORDERED: SODIUM CHLORIDE 0.9% 1000 ML 1,000 ML IV ONE (22:32)
[2019-07-23] MEDS ORDERED: KETOROLAC 30 MG/1 ML INJ IV STA (22:32)
== END 2019-07-23 23:15 | disposition left against medical advice (07) ==
LOC: ED 19:13
DX: J02.9 Acute pharyngitis, unspecified (principal); R50.9 Fever, unspecified; R11.10 Vomiting, unspecified; I10 Essential (primary) hypertension; E11.9 Type 2 diabetes mellitus without complications; F12.10 Cannabis abuse, uncomplicated; Z79.899 Other long term (current) drug therapy
CPT/HCPCS: 96372; 99282; J0561; J1100; Q0162

== ENCOUNTER 2021-04-23 19:57 | Emergency (ER) | payer SELFPAY ==
[2021-04-23] MEDS ORDERED: dexAMETHasone 20 MG/5 ML VIAL IM ONE (23:33)
--- NOTE | 2021-04-23 23:37 | Emergency Department Report ---
<PAULETTEJULIA SILVA - Last Filed: 04/24/21 01:59> ED General Adult HPI - General Chief complaint: Sore Throat Stated complaint: HEAD PAINS/POSS FEVER Time Seen by Provider: 04/23/21 23:11 Source: patient Mode of arrival: Ambulatory Limitations: No Limitations - History of Present Illness Initial comments: 30-year-old female patient presents emergency department with complaints of progressively worsening sore throat for 2 weeks. Patient states she was evaluated at another emergency department at the onset of her symptoms. She was treated with antibiotics, which she has since completed. She is unsure if she tested positive for strep throat. Patient states the antibiotics did not seem to help. Patient states she is having difficulty swallowing and is unable to eat solid food due to the pain in her throat. Denies fever, chills, hoarseness, wheezing, ear pain, neck stiffness, rash. Denies all other complaints at this time. Severity scale (0 -10): 3 - Related Data Previous Rx's Medication Instructions Recorded Last Taken Type Albuterol Mdi (or & Nicu Only) 2 puff IH QID PRN #200 inhalation 02/10/18 Unknown Rx [ProAir HFA Inhaler] Amoxicillin/Potassium Clav 1 each PO BID #20 tablet 02/10/18 Unknown Rx [Augmentin 875-125 Tablet] Prednisone [predniSONE 10 mg 10 mg PO .TAPER #1 tab.ds.pk 02/10/18 Unknown Rx (6-Day Pack, 21 Tabs)] Lidocaine Viscous 2% 5 ml MM Q3H PRN #120 udc 10/23/18 Unknown Rx Nystas/Diphen/Xyl Visc/Mylanta 15 ml MM Q6H PRN 5 Days ml 01/07/19 Unknown Rx [Magic Mouthwash] Ibuprofen [Motrin 600 MG tab] 600 mg PO Q8H PRN #20 tablet 06/16/19 Unknown Rx guaiFENesin [Robitussin] 5 ml PO TID PRN #100 ml 01/10/20 Unknown Rx Clindamycin [Clindamycin CAP] 300 mg PO Q6H 7 Days #28 capsule 04/24/21 Unknown Rx Ibuprofen [Motrin 800 MG tab] 800 mg PO Q8HR PRN #30 tablet 04/24/21 Unknown Rx dexAMETHasone [Decadron] 4 mg PO BID 3 Days #6 tablet 04/24/21 Unknown Rx Allergies Allergy/AdvReac Type Severity Reaction Status Date / Time No Known Allergies Allergy Verified 07/23/19 19:17 ED Review of Systems Other: GENERAL: Negative for fever, chills, weight change, anorexia, fatigue. ENT: Positive for sore throat and dysphagia. CARDIOVASCULAR: Negative for chest pain, palpitations, lower extremity swelling. PULMONARY: Negative for cough, dyspnea, wheezing, orthopnea, cyanosis. GASTROINTESTINAL: Negative for abdominal pain, nausea, vomiting, diarrhea, constipation. MUSCULOSKELETAL: Negative for joint pain, joint swelling, myalgias, back pain, neck pain. NEUROLOGICAL: Negative for headache, seizure, syncope, paresthesias, weakness. INTEGUMENTARY: Negative for erythema, rash, diaphoresis, laceration, ecchymosis. HEMATOLOGICAL: Negative for hemoptysis, hematemesis, hematochezia, hematuria. PSYCHIATRIC: Negative for hallucinations, suicidal ideation, homicidal ideation, anxiety, depression. ED Past Medical Hx - Past Medical History Hx Hypertension: Yes (during ) Hx Diabetes: Yes (gestational) Additional medical history: Diabetic and refuse to take medications for diabetes - Social History Smoking Status: Current Every Day Smoker Substance Use Type: None - Medications Home Medications: Home Medications Medication Instructions Recorded Confirmed Last Taken Type Albuterol Mdi (or & Nicu Only) 2 puff IH QID PRN #200 inhalation 02/10/18 Unkno wn Rx [ProAir HFA Inhaler] Amoxicillin/Potassium Clav 1 each PO BID #20 tablet 02/10/18 Unknown Rx [Augmentin 875-125 Tablet] Prednisone [predniSONE 10 mg 10 mg PO .TAPER #1 tab.ds.pk 02/10/18 Unknown Rx (6-Day Pack, 21 Tabs)] Lidocaine Viscous 2% 5 ml MM Q3H PRN #120 udc 10/23/18 Unknown Rx Nystas/Diphen/Xyl Visc/Mylanta 15 ml MM Q6H PRN 5 Days ml 01/07/19 Unknown Rx [Magic Mouthwash] Ibuprofen [Motrin 600 MG tab] 600 mg PO Q8H PRN #20 tablet 06/16/19 Unknown Rx guaiFENesin [Robitussin] 5 ml PO TID PRN #100 ml 01/10/20 Unknown Rx Clindamycin [Clindamycin CAP] 300 mg PO Q6H 7 Days #28 capsule 04/24/21 Unknown Rx Ibuprofen [Motrin 800 MG tab] 800 mg PO Q8HR PRN #30 tablet 04/24/21 Unknown Rx dexAMETHasone [Decadron] 4 mg PO BID 3 Days #6 tablet 04/24/21 Unknown Rx ED Physical Exam - General Limitations: No Limitations - Other Other exam information: General: Awake and alert. No acute distress. Head: Atraumatic, normocephalic. Eyes: EOMI. Pupils are equal and round. Normal sclera and conjunctiva. ENT: Oral mucosa is moist. Normal otoscopic exam. Bilateral tonsillar edema with minimal exudate. Uvula is midline. No trismus. Neck: Supple. Bilateral anterior cervical lymphadenopathy. Pulmonary: No respiratory distress. Clear to auscultation bilaterally. Cardiac: Tachycardic. Pulses are palpable and equal bilaterally. No lower extremity cyanosis or edema. Skin: Warm and dry. No rashes. Abdomen: Soft, non-tender, non-protuberant. No guarding, rigidity, or rebound. Bowel sounds are normal. No organomegaly or masses noted. Back: Normal alignment. No CVA tenderness. Extremities: Symmetrical. Full range of motion intact. Neurological: Alert and oriented, appropriately interactive, no focal deficits. Psych: Cooperative. Appropriate mood and affect. Speech is evenly metered. Thoughts are logically construed. ED Medical Decision Making - Lab Data Result diagrams: 04/23/21 23:56 04/23/21 23:56 - Medical Decision Making Differential diagnosis including but not limited to: strep pharyngitis, peritonsillar abscess, retropharyngeal abscess, Arthur's angina, mononucleosis Patient presents emergency department with complaints of progressively worsening sore throat for 2 weeks after completing a course of antibiotics. Minimal tachycardia noted on arrival. No hypoxia, no respiratory distress, no trismus. Rapid strep test is negative. White blood cell count is elevated. CT of the neck obtained for further evaluation. Care of patient transferred to Venkatesh Schmidt NP for final disposition pending radiology results. ED Disposition Clinical Impression: Tonsillitis Disposition: TO HOME OR SELFCARE Condition: Stable Instructions: Preventing Motor Vehicle Crashes, Adult, Shoulder Sprain Additional Instructions: Take all medications as prescribed. S Follow-up with primary care doctor in 2 to 3 days. Follow up with ENT , Return to emergency if symptoms worsen. Prescriptions: Clindamycin [Clindamycin CAP] 300 mg PO Q6H 7 Days #28 capsule dexAMETHasone [Decadron] 4 mg PO BID 3 Days #6 tablet Ibuprofen [Motrin 800 MG tab] 800 mg PO Q8HR PRN #30 tablet PRN Reason: pain Referrals: FRANCISCO JACOBSON MD [Staff Physician] - 3-5 Days ASHLEE PAYTON MD [Staff Physician] - 3-5 Days Forms: Work/School Release Form(ED) <VENKATESH SCHMIDT - Last Filed: 04/24/21 03:53> ED Review of Systems ROS: Stated complaint: HEAD PAINS/POSS FEVER Other details as noted in HPI Constitutional: chills, fever, malaise Eyes: denies: eye pain, eye discharge, vision change ENT: throat pain Respiratory: denies: cough, shortness of breath, wheezing Cardiovascular: denies: chest pain, palpitations Endocrine: no symptoms reported Gastrointestinal: denies: abdominal pain, nausea, diarrhea Genitourinary: denies: urgency, dysuria, discharge Musculoskeletal: denies: back pain, joint swelling, arthralgia Skin: denies: rash, lesions Neurological: denies: headache, weakness, paresthesias Psychiatric: denies: anxiety, depression Hematological/Lymphatic: denies: easy bleeding, easy bruising ED Physical Exam - General General appearance: alert, in no apparent distress - Head Head exam: Present: normocephalic, normal inspection - Eye Eye exam: Present: PERRL, EOMI Pupils: Present: normal accommodation - ENT ENT exam: Present: mucous membranes moist, TM's normal bilaterally, normal exte rnal ear exam - Expanded ENT Exam Expanded Throat exam: Positive: tonsillar erythema, tonsillomegaly, tonsillar exudate, other (uvula midline no stridor ). Negative: R peritonsillar mass, L peritonsillar mass - Neck Neck exam: Present: normal inspection, full ROM, lymphadenopathy. Absent: tenderness - Respiratory Respiratory exam: Present: normal lung sounds bilaterally. Absent: respiratory distress, wheezes, stridor, chest wall tenderness - Cardiovascular Cardiovascular Exam: Present: regular rate, normal rhythm, normal heart sounds. Absent: systolic murmur, diastolic murmur, rubs, gallop - GI/Abdominal GI/Abdominal exam: Present: soft, normal bowel sounds. Absent: distended, tenderness - Rectal Rectal exam: Present: deferred - Extremities Exam Extremities exam: Present: normal inspection, full ROM - Back Exam Back exam: Present: normal inspection, full ROM. Absent: tenderness - Neurological Exam Neurological exam: Present: alert, oriented X3, CN II-XII intact, normal gait - Psychiatric Psychiatric exam: Present: normal affect, normal mood - Skin Skin exam: Present: warm, dry, intact, normal color. Absent: rash ED Course Vital Signs 04/23/21 21:02 Temperature 99 F Pulse Rate 106 H Respiratory 18 Rate Blood Pressure 147/91 [Left] O2 Sat by Pulse 99 Oximetry ED Medical Decision Making - Lab Data Result diagrams: 04/23/21 23:56 04/23/21 23:56 - EKG Data Interpretation: unchanged when compared t - Radiology Data Radiology results: report reviewed, image reviewed DC CT demonstrates tonsillitis small 5 mm induration to right, could be initial abscess, - Medical Decision Making CT demonstrates tonsillitis small 5 mm induration to right, could be initial abscess, airway is patent, patient is tolerating p.o. with minimal pain. Patient has been on amoxicillin plan change antibiotics to clindamycin patient given first dose in ED tonight, Decadron p.o., follow-up with ENT in 2 to 3 days. Patient verbalized agreement and understanding with discharge plan patient will be DC'd home in stable condition at this time. Critical Care Time: Yes Critical care attestation.: If time is entered above; I have spent that time in minutes in the direct care of this critically ill patient, excluding procedure time. ED Disposition Is pt being admited?: No Does the pt Need Aspirin: No Time of Disposition: 03:53
[2021-04-24] MEDS ORDERED: dexAMETHasone 20 MG/5 ML VIAL IV ONE (00:09)
[2021-04-24 00:21] LABS: Basophils # (Auto) 0.1 K/mm3 (0.0-0.1); Basophils % (Auto) 0.4 % (0.0-1.8); Eosinophils # (Auto) 0.1 K/mm3 (0.0-0.4); Eosinophils % (Auto) 0.9 % (0.0-4.3); Hematocrit 35.9 % (30.3-42.9); Hemoglobin 11.3 gm/dl (10.1-14.3); Lymphocytes % (Auto) 27.6 % (13.4-35.0); Mean Corpuscular HGB Conc 32 % (30-34); Mean Corpuscular Volume 77 fl (79-97); Monocytes # (Auto) 0.8 K/mm3 (0.0-0.8); Monocytes % (Auto) 5.4 % (0.0-7.3); Platelet Count 294 K/mm3 (140-440); Red Blood Count 4.65 M/mm3 (3.65-5.03); Red Cell Distribution Width 16.1 % (13.2-15.2)
[2021-04-24 00:29] LABS: Blood Urea Nitrogen 11 mg/dL (7-17); Calcium 9.3 mg/dL (8.4-10.2); Hemolysis Index 4
[2021-04-24 00:50] LABS: BUN/Creatinine Ratio 16
--- NOTE | 2021-04-24 02:26 | Cat Scan Report ---
CT neck w con INDICATION / CLINICAL INFORMATION: 30 years Female; Pharyngitis; failed outpatient therapy - abscess. TECHNIQUE: Contiguous thin cut axial images obtained through the neck following IV contrast. Sagittal and salazar l reconstructions performed by the technologist. All CT scans at this location are performed using CT dose reduction for ALARA by means of automated exposure control. COMPARISON: None available. FINDINGS: 5 mm area of decreased attenuation is seen in the anterior pontine tonsillar right-early de veloping abscess might be considered. Parapharyngeal and retropharyngeal spaces are normal in appeara nce. MUCOSAL SPACE: [place] tonsils are prominent-right slightly greater than left. Otherwise, the nasoph arynx, oropharynx and vallecula, oral cavity and floor of mouth, hypopharynx, and larynx are grossly normal. LYMPH NODES: Prominent right level 2 lymph nodes are identified. Mildly prominent left level 2 lymph nodes are seen. No evidence of suppurative node. SALIVARY GLANDS: Parotid, submandibular, and visualized sublingual glands are within normal limits. THYROID GLAND: Prominent size without evidence of significantly sized cyst or nodule. Subcentimeter c yst suggested laterally in the left lobe and superiorly and posteriorly in the right lobe. PARANASAL SINUSES: Visualized paranasal sinuses and mastoid air cells are essentially clear. SPINE: No significant abnormality of the cervical spine appreciated. VASCULAR STRUCTURES: Vascular structures are grossly normal in appearance. ADDITIONAL FINDINGS: Surrounding soft tissues are otherwise grossly normal. IMPRESSION: 1. There may be a small focus of phlegmon or early abscess in the anterior palatine tonsil on the rig ht, as described above. 2. Mildly prominent lymph nodes identified, presumably reactive. No suppurative nodes seen. Signer Name: Isaiah Allen MD, III Signed: 04/24/2021 2:22 AM Workstation Name: Mr [email or web address]
[2021-04-24] MEDS ORDERED: CLINDAMYCIN 300 MG CAP PO ONE (03:47)
[2021-04-24 04:51] VITALS: BP 132/88
== END 2021-04-24 04:50 | disposition home or self-care (01) ==
LOC: ED 19:57
DX: J03.90 Acute tonsillitis, unspecified (principal); F17.200 Nicotine dependence, unspecified, uncomplicated; Z79.899 Other long term (current) drug therapy
CPT/HCPCS: 36415; 70491; 80048; 84703; 85025; 87116; 87430; 96374; 99284; J1100; Q9967

== ENCOUNTER 2021-10-24 20:32 | Emergency (ER) | payer SELFPAY ==
[2021-10-24 20:36] VITALS: BP 112/65
[2021-10-24 21:02] LABS: Bacteria,Urine 1+ /HPF (Negative); Bilirubin,Urine NEG (Negative); Blood,Urine LG (Negative); Color,Urine Yellow (Yellow); Mucus,Urine 1+ /HPF; Urobilinogen,Urine < 2.0 mg/dL (<2.0)
[2021-10-24 21:05] LABS: RBC,Urine > 182.0 /HPF (0.0-6.0)
[2021-10-24] MEDS ORDERED: HYDROcodone/ACETAMINOPHEN 5-325 MG TAB PO ONE (21:51)
[2021-10-24] MEDS ORDERED: ONDANSETRON 4 MG ODT TAB PO ONE (21:51)
[2021-10-24] MEDS ORDERED: IBUPROFEN 600 MG TAB PO ONE (21:51)
[2021-10-24 23:10] LABS: Mean Corpuscular HGB Conc 30 % (30-34); Mean Corpuscular Volume 76 fl (79-97); Platelet Count 284 K/mm3 (140-440); Red Blood Count 4.32 M/mm3 (3.65-5.03)
[2021-10-24 23:11] LABS: Hemoglobin 9.8 gm/dl (10.1-14.3)
[2021-10-24 23:32] LABS: Alanine Aminotransferase 20 units/L (7-56); Albumin 3.8 g/dL (3.9-5); Blood Urea Nitrogen 9 mg/dL (7-17); Calcium 8.8 mg/dL (8.4-10.2); Hemolysis Index 2
[2021-10-24 23:38] LABS: BUN/Creatinine Ratio 15
--- NOTE | 2021-10-25 00:47 | Emergency Department Report ---
ED Abdominal Pain HPI - General Chief Complaint: Abdominal Pain Stated Complaint: ABDOMINAL BACK PAIN Source: patient Mode of arrival: Ambulatory Limitations: No Limitations - History of Present Illness Initial Comments: Patient is a A0 30-year-old -[place] female with no past medical history who presented to the ED with complaint of acute onset persistent diffuse low abdominal pain, vaginal bleeding for the last 5 days. Patient states that the pain is so severe and is different than her usual menstrual cycle although she admits not to have had her menstrual cycle last month. Patient also states that the vaginal bleeding is heavier than usual. Patient denies dizziness, syncope, chest pain, shortness of breath, nausea and vomiting, diarrhea, cough, sore throat, traumatic injury, heavy lifting, dyspareunia, dysuria, urinary frequency and urgency and vaginal discharge. MD Complaint: abdominal pain, other (vaginal bleeding) -: Sudden, days(s) (5) Location: suprapubic Radiation: back (lower) Migration to: no migration Severity: severe Severity scale (0 -10): 7 Quality: cramping, sharp Consistency: constant Improves With: nothing Worsens With: movement Context: other (Suspected dysmenorrhea) Associated Symptoms: denies other symptoms. denies: nausea, vomiting, diarrhea, fever, chills, constipation, dysuria, hematemesis, hematochezia, melena, hematuria, anorexia, syncope - Related Data Previous Rx's Medication Instructions Recorded Last Taken Type Albuterol Mdi (or & Nicu Only) 2 puff IH QID PRN #200 inhalation 02/10/18 Unknown Rx [ProAir HFA Inhaler] Amoxicillin/Potassium Clav 1 each PO BID #20 tablet 02/10/18 Unknown Rx [Augmentin 875-125 Tablet] Prednisone [predniSONE 10 mg 10 mg PO .TAPER #1 tab.ds.pk 02/10/18 Unknown Rx (6-Day Pack, 21 Tabs)] Lidocaine Viscous 2% 5 ml MM Q3H PRN #120 udc 10/23/18 Unknown Rx Nystas/Diphen/Xyl Visc/Mylanta 15 ml MM Q6H PRN 5 Days ml 01/07/19 Unknown Rx [Magic Mouthwash] Ibuprofen [Motrin 600 MG tab] 600 mg PO Q8H PRN #20 tablet 06/16/19 Unknown Rx guaiFENesin [Robitussin] 5 ml PO TID PRN #100 ml 01/10/20 Unknown Rx Clindamycin [Clindamycin CAP] 300 mg PO Q6H 7 Days #28 capsule 04/24/21 Unknown Rx Ibuprofen [Motrin 800 MG tab] 800 mg PO Q8HR PRN #30 tablet 04/24/21 Unknown Rx dexAMETHasone [Decadron] 4 mg PO BID 3 Days #6 tablet 04/24/21 Unknown Rx Acetaminophen [Tylenol] 500 mg PO Q6HR PRN #40 tablet 10/25/21 Unknown Rx Allergies Allergy/AdvReac Type Severity Reaction Status Date / Time No Known Allergies Allergy Verified 07/23/19 19:17 ED Review of Systems ROS: Stated complaint: ABDOMINAL BACK PAIN Other details as noted in HPI Constitutional: denies: chills, fever Eyes: denies: eye pain, eye discharge, vision change ENT: denies: ear pain, throat pain Respiratory: denies: cough, shortness of breath, wheezing Cardiovascular: denies: chest pain, palpitations Endocrine: no symptoms reported Gastrointestinal: abdominal pain (Suprapubic pain). denies: nausea, diarrhea Genitourinary: abnormal menses (Heavy vaginal bleeding). denies: urgency, dysuria, discharge Musculoskeletal: back pain (Low back pain). denies: joint swelling, arthralgia Skin: denies: rash, lesions Neurological: denies: headache, weakness, paresthesias Psychiatric: denies: anxiety, depression Hematological/Lymphatic: denies: easy bleeding, easy bruising ED Past Medical Hx - Past Medical History Previous Medical History?: Yes Hx Hypertension: Yes (during ) Hx Diabetes: Yes (gestational) Additional medical history: Diabetic and refuse to take medications for diabetes - Surgical History Past Surgical History?: No - Social History Smoking Status: Current Every Day Smoker Substance Use Type: None - Medications Home Medications: Home Medications Medication Instructions Recorded Confirmed Last Taken Type Albuterol Mdi (or & Nicu Only) 2 puff IH QID PRN #200 inhalation 02/10/18 Unk nown Rx [ProAir HFA Inhaler] Amoxicillin/Potassium Clav 1 each PO BID #20 tablet 02/10/18 Unknown Rx [Augmentin 875-125 Tablet] Prednisone [predniSONE 10 mg 10 mg PO .TAPER #1 tab.ds.pk 02/10/18 Unknown Rx (6-Day Pack, 21 Tabs)] Lidocaine Viscous 2% 5 ml MM Q3H PRN #120 udc 10/23/18 Unknown Rx Nystas/Diphen/Xyl Visc/Mylanta 15 ml MM Q6H PRN 5 Days ml 01/07/19 Unknown Rx [Magic Mouthwash] Ibuprofen [Motrin 600 MG tab] 600 mg PO Q8H PRN #20 tablet 06/16/19 Unknown Rx guaiFENesin [Robitussin] 5 ml PO TID PRN #100 ml 01/10/20 Unknown Rx Clindamycin [Clindamycin CAP] 300 mg PO Q6H 7 Days #28 capsule 04/24/21 Unknown Rx Ibuprofen [Motrin 800 MG tab] 800 mg PO Q8HR PRN #30 tablet 04/24/21 Unknown Rx dexAMETHasone [Decadron] 4 mg PO BID 3 Days #6 tablet 04/24/21 Unknown Rx Acetaminophen [Tylenol] 500 mg PO Q6HR PRN #40 tablet 10/25/21 Unknown Rx ED Physical Exam - General Limitations: No Limitations General appearance: alert, in no apparent distress - Head Head exam: Present: atraumatic, normocephalic, normal inspection - Eye Eye exam: Present: normal appearance, PERRL Pupils: Present: normal accommodation - ENT ENT exam: Present: normal exam, normal orophraynx, mucous membranes moist, TM's normal bilaterally, normal external ear exam - Neck Neck exam: Present: normal inspection, full ROM - Respiratory Respiratory exam: Present: normal lung sounds bilaterally. Absent: respiratory distress, wheezes, rales, rhonchi, chest wall tenderness, accessory muscle use, decreased breath sounds, prolonged expiratory - Cardiovascular Cardiovascular Exam: Present: regular rate, normal rhythm, normal heart sounds. Absent: systolic murmur, diastolic murmur, rubs, gallop - GI/Abdominal GI/Abdominal exam: Present: soft, tenderness (Palpable suprapubic tenderness), normal bowel sounds. Absent: guarding, rebound, hyperactive bowel sounds, organomegaly - Bi-manual exam: Present: other (Pelvic exam deferred at this time) - Extremities Exam Extremities exam: Present: normal inspection, full ROM, normal capillary refill - Back Exam Back exam: Present: normal inspection, full ROM, tenderness (Palpable lumbosacral paraspinal musculoskeletal tenderness), muscle spasm, paraspinal tenderness. Absent: CVA tenderness (R), CVA tenderness (L), vertebral tenderness - Neurological Exam Neurological exam: Present: alert, oriented X3, CN II-XII intact, normal gait, reflexes normal - Psychiatric Psychiatric exam: Present: normal affect, normal mood, anxious - Skin Skin exam: Present: warm, dry, intact, normal color. Absent: rash ED Course Vital Signs 10/24/21 10/24/21 10/24/21 20:35 20:45 22:12 Pulse Rate 89 Respiratory 18 17 Rate Blood Pressure 112/65 O2 Sat by Pulse 99 97 Oximetry 10/25/21 00:56 Pulse Rate 75 Respiratory 18 Rate Blood Pressure O2 Sat by Pulse 100 Oximetry ED Medical Decision Making - Lab Data Result diagrams: 10/24/21 22:43 10/24/21 22:43 - Medical Decision Making This is a A0 30-year-old -[place] female with no past medical history who presented to the ED with complaint of acute onset persistent diffuse low abdominal pain, vaginal bleeding for the last 5 days. Patient states that the pain is so severe and is different than her usual menstrual cycle although she admits not to have had her menstrual cycle last month. Patient also states that the vaginal bleeding is heavier than usual. In the ED, patient is alert and oriented x3 and is not in any distress. Patient was treated for pain in the ED. lab test results were reviewed and showed acute leukocytosis of 13,500 and an incidental finding of a positive hCG with hCG quant of 17.65. Urinalysis is unremarkable except for gross hematuria. Patient's hCG quant is too low to characterize any activity on ultrasound. On reevaluation, patient's pain is well controlled medication. Patient was therefore discharged home and advised to return to the ED within 48 hours for serial hCG quant studies repeat to ascertain the viability of her . Patient was otherwise advised return to the ED immediately if symptoms get worse. - Differential Diagnosis UTI; ovarian cyst; dysmenorrhea; kidney stone; ; Critical care attestation.: If time is entered above; I have spent that time in minutes in the direct care of this critically ill patient, excluding procedure time. ED Disposition Clinical Impression: Threatened miscarriage in early , Pelvic pain during , Vaginal bleeding in Disposition: HOME / SELF CARE / HOMELESS Is pt being admited?: No Does the pt Need Aspirin: No Condition: Stable Instructions: Pelvic Pain, Female, [id number], Threatened Miscarriage, [id number], Vaginal Bleeding During , First Trimester, [id number], Abdominal Pain (ED) Additional Instructions: Lab test results showed a positive , with significantly lower hCG quant studies of 17.65 This may be due to the fact that the may be too early or that you are having a miscarriage. It is more likely that you are having a miscarriage given your symptoms of severe pelvic pain and heavy vaginal bleeding consistent with your menstrual cycle. Therefore return to the ED within 48 hours for confirmation of the viability of the . Otherwise return to the ED immediately if your symptoms get worse. Prescriptions: Acetaminophen [Tylenol] 500 mg PO Q6HR PRN #40 tablet PRN Reason: Pelvic pain Referrals: FARSHAD RODRIGUEZ MD [Staff Physician] - 3-5 Days Time of Disposition: 00:45 Print Language: BENGALI
[2021-10-25 02:36] LABS: Total Cells Counted 100
[2021-10-25 02:42] LABS: Anisocytosis 1+; Hypochromasia 1+; Platelet Estimate Consistent w Auto
== END 2021-10-25 00:50 | disposition home or self-care (01) ==
LOC: ED 20:32
DX: O20.0 Threatened abortion (principal); O99.331 Smoking (tobacco) complicating pregnancy, first trimester; Z3A.01 Less than 8 weeks gestation of pregnancy
CPT/HCPCS: 36415; 80053; 81001; 84702; 84703; 85007; 85025; 99283; J3490; Q0162

== ENCOUNTER 2021-10-26 16:52 | Emergency (ER) | payer SELFPAY ==
[2021-10-26 18:37] VITALS: BP 125/73
[2021-10-26 21:02] LABS: Basophils # (Auto) 0.1 K/mm3 (0.0-0.1); Basophils % (Auto) 0.5 % (0.0-1.8); Eosinophils # (Auto) 0.1 K/mm3 (0.0-0.4); Eosinophils % (Auto) 0.9 % (0.0-4.3); Lymphocytes # (Auto) 3.3 K/mm3 (1.2-5.4); Lymphocytes % (Auto) 26.3 % (13.4-35.0); Mean Corpuscular HGB Conc 30 % (30-34); Mean Corpuscular Volume 77 fl (79-97); Monocytes # (Auto) 0.5 K/mm3 (0.0-0.8); Monocytes % (Auto) 3.9 % (0.0-7.3); Platelet Count 334 K/mm3 (140-440); Red Blood Count 4.31 M/mm3 (3.65-5.03); Red Cell Distribution Width 18.5 % (13.2-15.2)
[2021-10-26 21:07] LABS: Hemoglobin 9.9 gm/dl (10.1-14.3)
[2021-10-26 21:23] LABS: Alanine Aminotransferase 21 units/L (7-56); Albumin 3.8 g/dL (3.9-5); Blood Urea Nitrogen 7 mg/dL (7-17); Calcium 9.3 mg/dL (8.4-10.2); Hemolysis Index 9
[2021-10-26 21:32] LABS: BUN/Creatinine Ratio 12
--- NOTE | 2021-10-26 21:55 | Emergency Department Report ---
ED General Adult HPI - General Chief complaint: Recheck/Abnormal Lab/Rx Stated complaint: Vaginal Bleeding Source: patient Mode of arrival: Ambulatory Limitations: No Limitations - History of Present Illness Initial comments: Patient is a A0 30-year-old -Citizen Of [place] female with no past medical history who presented to the ED with complaint of persistent acute onset pers istent diffuse low abdominal pain that radiates to the lower back and vaginal bleeding for the last 7 days. Patient was initially treated in the ED 2 days ago and incidentally found to have a positive with hCG quant of 17.65. The patient was treated and discharged home and advised to return to the ED within 48 hours for serial hCG quant test to ascertain the viability of the . Patient returned to the ED today still complaining of lower abdominal pain and heavy vaginal bleeding. Patient however states that she has not taken pain medication that were previously prescribed for the last 24 hours. Patient denies dizziness, syncope, chest pain, shortness of breath, nausea and vomiting, diarrhea, cough, sore throat, traumatic injury, heavy lifting, dyspareunia, dysuria, urinary frequency and urgency and vaginal discharge MD Complaint: Vaginal bleeding; recheck hCG quant -: Sudden, week(s) (1) Location: abdomen (suprapubic) Radiation: back (lower back ), abdomen (suprapubic) Severity scale (0 -10): 7 Quality: aching, sharp Consistency: constant Improves with: none Worsens with: movement Associated Symptoms: denies other symptoms. denies: confusion, chest pain, cough, diaphoresis, headaches, loss of appetite, malaise, nausea/vomiting, rash, seizure, shortness of breath, syncope, weakness Treatments Prior to Arrival: none - Related Data Previous Rx's Medication Instructions Recorded Last Taken Type Albuterol Mdi (or & Nicu Only) 2 puff IH QID PRN #200 inhalation 02/10/18 Unknown Rx [ProAir HFA Inhaler] Amoxicillin/Potassium Clav 1 each PO BID #20 tablet 02/10/18 Unknown Rx [Augmentin 875-125 Tablet] Prednisone [predniSONE 10 mg 10 mg PO .TAPER #1 tab.ds.pk 02/10/18 Unknown Rx (6-Day Pack, 21 Tabs)] Lidocaine Viscous 2% 5 ml MM Q3H PRN #120 udc 10/23/18 Unknown Rx Nystas/Diphen/Xyl Visc/Mylanta 15 ml MM Q6H PRN 5 Days ml 01/07/19 Unknown Rx [Magic Mouthwash] Ibuprofen [Motrin 600 MG tab] 600 mg PO Q8H PRN #20 tablet 06/16/19 Unknown Rx guaiFENesin [Robitussin] 5 ml PO TID PRN #100 ml 01/10/20 Unknown Rx Clindamycin [Clindamycin CAP] 300 mg PO Q6H 7 Days #28 capsule 04/24/21 Unknown Rx Ibuprofen [Motrin 800 MG tab] 800 mg PO Q8HR PRN #30 tablet 04/24/21 Unknown Rx dexAMETHasone [Decadron] 4 mg PO BID 3 Days #6 tablet 04/24/21 Unknown Rx Acetaminophen [Tylenol] 500 mg PO Q6HR PRN #40 tablet 10/25/21 Unknown Rx Acetaminophen/Codeine [Tylenol 1 tab PO Q6H PRN #12 tab 10/26/21 Unknown Rx /Codeine # 3 tab] Baclofen 20 mg PO Q12H PRN #20 tablet 10/26/21 Unknown Rx Allergies Allergy/AdvReac Type Severity Reaction Status Date / Time No Known Allergies Allergy Verified 07/23/19 19:17 ED Review of Systems ROS: Stated complaint: Vaginal Bleeding Other details as noted in HPI Constitutional: denies: chills, fever Eyes: denies: eye pain, eye discharge, vision change ENT: denies: ear pain, throat pain Respiratory: denies: cough, shortness of breath, wheezing Cardiovascular: denies: chest pain, palpitations Endocrine: no symptoms reported Gastrointestinal: abdominal pain (suprapubic). denies: nausea, vomiting, diarrh ea Genitourinary: abnormal menses (heavy vaginal bleeding). denies: urgency, dysuria, frequency, hematuria, discharge Musculoskeletal: back pain (lower back pain). denies: joint swelling, arthralgia Skin: denies: rash, lesions Neurological: denies: headache, weakness, paresthesias Psychiatric: denies: anxiety, depression Hematological/Lymphatic: denies: easy bleeding, easy bruising ED Past Medical Hx - Past Medical History Hx Hypertension: Yes (during ) Hx Diabetes: Yes (gestational) Additional medical history: Diabetic and refuse to take medications for diabetes - Social History Smoking Status: Current Every Day Smoker Substance Use Type: None - Medications Home Medications: Home Medications Medication Instructions Recorded Confirmed Last Taken Type Albuterol Mdi (or & Nicu Only) 2 puff IH QID PRN #200 inhalation 02/10/18 Unknown Rx [ProAir HFA Inhaler] Amoxicillin/Potassium Clav 1 each PO BID #20 tablet 02/10/18 Unknown Rx [Augmentin 875-125 Tablet] Prednisone [predniSONE 10 mg 10 mg PO .TAPER #1 tab.ds.pk 02/10/18 Unknown Rx (6-Day Pack, 21 Tabs)] Lidocaine Viscous 2% 5 ml MM Q3H PRN #120 udc 10/23/18 Unknown Rx Nystas/Diphen/Xyl Visc/Mylanta 15 ml MM Q6H PRN 5 Days ml 01/07/19 Unknown Rx [Magic Mouthwash] Ibuprofen [Motrin 600 MG tab] 600 mg PO Q8H PRN #20 tablet 06/16/19 Unknown Rx guaiFENesin [Robitussin] 5 ml PO TID PRN #100 ml 01/10/20 Unknown Rx Clindamycin [Clindamycin CAP] 300 mg PO Q6H 7 Days #28 capsule 04/24/21 Unknown Rx Ibuprofen [Motrin 800 MG tab] 800 mg PO Q8HR PRN #30 tablet 04/24/21 Unknown Rx dexAMETHasone [Decadron] 4 mg PO BID 3 Days #6 tablet 04/24/21 Unknown Rx Acetaminophen [Tylenol] 500 mg PO Q6HR PRN #40 tablet 10/25/21 Unknown Rx Acetaminophen/Codeine [Tylenol 1 tab PO Q6H PRN #12 tab 10/26/21 Unknown Rx /Codeine # 3 tab] Baclofen 20 mg PO Q12H PRN #20 tablet 10/26/21 Unknown Rx ED Physical Exam - General Limitations: No Limitations General appearance: alert, in no apparent distress - Head Head exam: Present: atraumatic, normocephalic, normal inspection - Eye Eye exam: Present: normal appearance, PERRL, EOMI Pupils: Present: normal accommodation - ENT ENT exam: Present: normal exam, normal orophraynx, mucous membranes moist, TM's normal bilaterally, normal external ear exam - Neck Neck exam: Present: normal inspection, full ROM. Absent: tenderness - Respiratory Respiratory exam: Present: normal lung sounds bilaterally. Absent: respiratory distress, wheezes, rales, rhonchi, chest wall tenderness, accessory muscle use, decreased breath sounds, prolonged expiratory - Cardiovascular Cardiovascular Exam: Present: regular rate, normal rhythm, normal heart sounds. Absent: systolic murmur, diastolic murmur, rubs, gallop - GI/Abdominal GI/Abdominal exam: Present: soft, tenderness (Palpable suprapubic tenderness), normal bowel sounds. Absent: guarding, rebound, rigid, hyperactive bowel sounds, hypoactive bowel sounds, organomegaly - Bi-manual exam: Present: other (Pelvic exam deferred) - Extremities Exam Extremities exam: Present: normal inspection, full ROM, normal capillary refill - Back Exam Back exam: Present: normal inspection, full ROM, tenderness (Palpable lumbosacral paraspinal musculoskeletal tenderness), muscle spasm, paraspinal tenderness. Absent: CVA tenderness (R), CVA tenderness (L), vertebral tenderness - Neurological Exam Neurological exam: Present: alert, oriented X3, CN II-XII intact, normal gait, reflexes normal - Psychiatric Psychiatric exam: Present: normal affect, normal mood - Skin Skin exam: Present: warm, dry, intact, normal color. Absent: rash ED Course Vital Signs 10/26/21 18:36 Temperature 98.1 F Pulse Rate 72 Respiratory 16 Rate Blood Pressure 125/73 O2 Sat by Pulse 100 Oximetry ED Medical Decision Making - Lab Data Result diagrams: 10/26/21 20:43 10/26/21 20:43 - Medical Decision Making This is a A0 30-year-old -Citizen Of [place] female with no past medical history who presented to the ED with complaint of persistent acute onset persistent diffuse low abdominal pain that radiates to the lower back and v aginal bleeding for the last 7 days. Patient was initially treated in the ED 2 days ago and incidentally found to have a positive with hCG quant of 17.65. The patient was treated and discharged home and advised to return to the ED within 48 hours for serial hCG quant test to ascertain the viability of the . Patient returned to the ED today still complaining of lower abdominal pain and heavy vaginal bleeding. Patient however states that she has not taken pain medication that were previously prescribed for the last 24 hours. In the ED, patient is alert and oriented x3 and is not in any distress. Lab test results were reviewed and showed hCG quant of 8.29, significantly reduced from the hCG quant of 17.65 that was generated 48 hours ago. This therefore means that the patient is clearly having a miscarriage and that the is not viable at this time. Patient was therefore advised to take pain medication as needed and follow-up with [facility] physician in 5 to 7 days for reevaluation. Patient was advised return to the ED immediately if symptoms get worse. - Differential Diagnosis Inevitable miscarriage; dehydration; UTI; ovarian cyst; Critical care attestation.: If time is entered above; I have spent that time in minutes in the direct care of this critically ill patient, excluding procedure time. ED Disposition Clinical Impression: Incomplete miscarriage, Severe dysmenorrhea, Vaginal bleeding affecting early Disposition: 01 HOME / SELF CARE / HOMELESS Is pt being admited?: No Does the pt Need Aspirin: No Condition: Stable Instructions: Vaginal Bleeding During , First Trimester, [id number], Miscarriage, [id number] Additional Instructions: The current lab test results showed that the hCG quant is 8.29, significantly less done 48 hours ago when the hCG quant was 17.65. This therefore means that the is nonviable at this time, as the miscarriage is almost complete. Therefore take medications as needed for pain, drink plenty of fluids and follow-up with your [facility] [employer] physician in 7 to 10 days for reevaluation. Return to the ED immediately if symptoms get worse. Prescriptions: Baclofen 20 mg PO Q12H PRN #20 tablet PRN Reason: Muscle Spasm Acetaminophen/Codeine [Tylenol /Codeine # 3 tab] 1 tab PO Q6H PRN #12 tab PRN Reason: severe pain Referrals: OLI BERG MD [Staff Physician] - 3-5 Days Forms: Work/School Release Form(ED) Time of Disposition: 21:59 Print Language: SAMI
[2021-10-26] MEDS ORDERED: oxyCODONE /ACETAMINOPHEN 5-325MG TAB PO ONE (22:01)
[2021-10-26] MEDS ORDERED: ONDANSETRON 4 MG ODT TAB PO ONE (22:01)
== END 2021-10-26 22:40 | disposition home or self-care (01) ==
LOC: ED 16:52
DX: O02.1 Missed abortion (principal); O16.1 Unspecified maternal hypertension, first trimester; F17.200 Nicotine dependence, unspecified, uncomplicated; Z3A.00 Weeks of gestation of pregnancy not specified
CPT/HCPCS: 36415; 80053; 84702; 85025; 99283; J3490; Q0162

== ENCOUNTER 2022-03-02 21:35 | Emergency (ER) | payer SELFPAY ==
[2022-03-02 22:44] VITALS: BP 113/61
[2022-03-03] MEDS ORDERED: KETOROLAC 10 MG TAB PO ONE (03:17)
[2022-03-03] MEDS ORDERED: AMOXICILLIN 500 MG CAP PO ONE (03:18)
[2022-03-03] MEDS ORDERED: diphenhydrAMINE 25 MG CAP PO ONE (03:18)
[2022-03-03] MEDS ORDERED: dexAMETHasone 4 MG/ML VIAL IM ONE (03:18)
[2022-03-03] MEDS ORDERED: METOCLOPRAMIDE 10 MG TAB PO ONE (03:18)
--- NOTE | 2022-03-03 05:17 | Emergency Department Report ---
ED Headache HPI - General Chief Complaint: Headache Stated Complaint: BLURRIED VISION AND HEADACHE Time Seen by Provider: 03/03/22 02:33 - History of Present Illness Initial Comments: 31 yof with no pmh presents to ed for evaluation of 1.5 week history of headache. She states that she has taken Goody's powder without improvement. She states that she is now having some vision changes, dizziness, photophobia, cough, congestion, and toothache. She states that she has an abscessed tooth and denies fever. Timing/Duration: 1 week Quality: severe Head Injury Location: frontal Recent Head Trauma: frequent headaches Associated Symptoms: facial pain, nasal congestion, nasal drainage, vision changes. denies: confusion, fatigue, fever/chills, flushing, loss of consciousness, nausea/vomiting, numbness in legs/feet, seizures, sinus infection, stiff neck, weakness Allergies/Adverse Reactions: Allergies No Known Allergies Allergy (Verified 07/23/19 19:17) Home Medications: Ambulatory Orders Albuterol Mdi (or & Nicu Only) [ProAir HFA Inhaler] 2 puff IH QID PRN #200 inhalation 02/10/18 Amoxicillin/Potassium Clav [Augmentin 875-125 Tablet] 1 each PO BID #20 tablet 02/10/18 Prednisone [predniSONE 10 mg (6-Day Pack, 21 Tabs)] 10 mg PO .TAPER #1 tab.ds.pk 02/10/18 Lidocaine Viscous 2% 5 ml MM Q3H PRN #120 udc 10/23/18 Nystas/Diphen/Xyl Visc/Mylanta [Magic Mouthwash] 15 ml MM Q6H PRN 5 Days ml 01/07/19 Ibuprofen [Motrin 600 MG tab] 600 mg PO Q8H PRN #20 tablet 06/16/19 guaiFENesin [Robitussin] 5 ml PO TID PRN #100 ml 01/10/20 Clindamycin [Clindamycin CAP] 300 mg PO Q6H 7 Days #28 capsule 04/24/21 Ibuprofen [Motrin 800 MG tab] 800 mg PO Q8HR PRN #30 tablet 04/24/21 dexAMETHasone [Decadron] 4 mg PO BID 3 Days #6 tablet 04/24/21 Acetaminophen [Tylenol] 500 mg PO Q6HR PRN #40 tablet 10/25/21 Acetaminophen/Codeine [Tylenol /Codeine # 3 tab] 1 tab PO Q6H PRN #12 tab 10/26/21 Baclofen 20 mg PO Q12H PRN #20 tablet 10/26/21 Amoxicillin [Amoxicillin TAB] 875 mg PO BID #14 tab 03/03/22 Levocetirizine Dihydrochloride [Xyzal] 5 mg PO QPM #15 tab 03/03/22 methylPREDNISolone [Medrol 4MG DOSEPAK (21 tabs)] 4 mg PO DAILY #1 pack 03/03/22 ED Review of Systems ROS: Stated complaint: BLURRIED VISION AND HEADACHE Other details as noted in HPI Comment: All other systems reviewed and negative Constitutional: denies: chills, fever Eyes: eye pain, vision change ENT: throat pain, dental pain, congestion. denies: ear pain Respiratory: cough. denies: orthopnea, shortness of breath, SOB with exertion, SOB at rest, stridor, wheezing Cardiovascular: denies: chest pain, palpitations, dyspnea on exertion, orthopnea, edema, syncope, paroxysmal nocturnal dyspnea Gastrointestinal: denies: abdominal pain, nausea, vomiting Genitourinary: denies: urgency, dysuria Musculoskeletal: denies: back pain Skin: denies: rash, lesions Neurological: headache. denies: weakness, numbness, paresthesias, confusion, abnormal gait Psychiatric: denies: anxiety, depression Hematological/Lymphatic: denies: easy bleeding, easy bruising ED Past Medical Hx - Past Medical History Hx Hypertension: Yes (during ) Hx Diabetes: Yes (gestational) Additional medical history: Diabetic and refuse to take medications for diabetes - Social History Smoking Status: Current Every Day Smoker Substance Use Type: None - Medications Home Medications: Home Medications Medication Instructions Recorded Confirmed Last Taken Type Albuterol Mdi (or & Nicu Only) 2 puff IH QID PRN #200 inhalation 02/10/18 Unknown Rx [ProAir HFA Inhaler] Amoxicillin/Potassium Clav 1 each PO BID #20 tablet 02/10/18 Unknown Rx [Augmentin 875-125 Tablet] Prednisone [predniSONE 10 mg 10 mg PO .TAPER #1 tab.ds.pk 02/10/18 Unknown Rx (6-Day Pack, 21 Tabs)] Lidocaine Viscous 2% 5 ml MM Q3H PRN #120 udc 10/23/18 Unknown Rx Nystas/Diphen/Xyl Visc/Mylanta 15 ml MM Q6H PRN 5 Days ml 01/07/19 Unknown Rx [Magic Mouthwash] Ibuprofen [Motrin 600 MG tab] 600 mg PO Q8H PRN #20 tablet 06/16/19 Unknown Rx guaiFENesin [Robitussin] 5 ml PO TID PRN #100 ml 01/10/20 Unknown Rx Clindamycin [Clindamycin CAP] 300 mg PO Q6H 7 Days #28 capsule 04/24/21 Unknown Rx Ibuprofen [Motrin 800 MG tab] 800 mg PO Q8HR PRN #30 tablet 04/24/21 Unknown Rx dexAMETHasone [Decadron] 4 mg PO BID 3 Days #6 tablet 04/24/21 Unknown Rx Acetaminophen [Tylenol] 500 mg PO Q6HR PRN #40 tablet 10/25/21 Unknown Rx Acetaminophen/Codeine [Tylenol 1 tab PO Q6H PRN #12 tab 10/26/21 Unknown Rx /Codeine # 3 tab] Baclofen 20 mg PO Q12H PRN #20 tablet 10/26/21 Unknown Rx Amoxicillin [Amoxicillin TAB] 875 mg PO BID #14 tab 03/03/22 Unknown Rx Levocetirizine Dihydrochloride 5 mg PO QPM #15 tab 03/03/22 Unknown Rx [Xyzal] methylPREDNISolone [Medrol 4MG 4 mg PO DAILY #1 pack 03/03/22 Unknown Rx DOSEPAK (21 tabs)] ED Physical Exam - General Limitations: No Limitations General appearance: alert, in no apparent distress - Head Head exam: Present: atraumatic, normocephalic - Eye Eye exam: Present: normal appearance. Absent: conjunctival injection - ENT ENT exam: Absent: normal exam (bilateral nasal mucosal edema and bilateral turbinate swelling with tenderness to frontal and maxillary sinus areas), normal orophraynx (erythema to posterior oropharynx) - Expanded ENT Exam Expanded Teeth exam: Present: dental tenderness # (32), other (erythema and edema noted to gums surrounding tooth #32 along with abscess to area. ) - Neck Neck exam: Present: normal inspection, lymphadenopathy. Absent: full ROM - Respiratory Respiratory exam: Present: normal lung sounds bilaterally. Absent: respiratory distress, wheezes, rales, rhonchi, stridor, chest wall tenderness - Cardiovascular Cardiovascular Exam: Present: regular rate, normal heart sounds - GI/Abdominal GI/Abdominal exam: Present: soft, normal bowel sounds. Absent: distended, tenderness - Extremities Exam Extremities exam: Present: normal inspection, normal capillary refill. Absent: full ROM, tenderness, pedal edema, joint swelling, calf tenderness - Back Exam Back exam: Present: normal inspection. Absent: CVA tenderness (R), CVA tenderness (L), vertebral tenderness - Neurological Exam Neurological exam: Present: alert, oriented X3, normal gait - Expanded Neurological Exam Expanded Patient oriented to: Present: person, place, time Speech: Present: fluid speech Cranial nerves: EOM's Intact: Normal, Gag Reflex: Normal, Tongue Deviation: Normal, Nystagmus: Normal Ataxia: Absent: yes Cerebellar function: Romberg: Normal Sensory exam: Upper Extremity Light Touch: Normal, Upper Extremity Temperature: Normal, Lower Extremity Light Touch: Normal, Lower Extremity Temperature: Normal Motor strength exam: RUE: 5, LUE: 5, RLE: 5, LLE: 5 Best Eye Response ([place]): (4) open spontaneously Best Motor Response ([place]): (6) obeys commands Best Verbal Response ([place]): (5) oriented [place] Total: 15 - Psychiatric Psychiatric exam: Present: normal affect, normal mood - Skin Skin exam: Present: warm, dry, intact, normal color ED Course Vital Signs 03/02/22 03/03/22 22:43 03:29 Temperature 98.7 F Pulse Rate 83 Respiratory 16 18 Rate Blood Pressure 113/61 [Right] O2 Sat by Pulse 97 Oximetry - Reevaluation(s) Reevaluation #1: 03/03/22 05:14 Headache resolved and patient now resting comfortably. ED Medical Decision Making - Medical Decision Making 31 yof with no pmh presents to ed for evaluation of 1.5 week history of headache. She states that she has taken Goody's powder without improvement. She states that she is now having some vision changes, dizziness, photophobia, cough, congestion, and toothache. She states that she has an abscessed tooth and denies fever. Headache resolved after medications. Exam consistent with sinus headache and dental abscess. Patient will be discharged home with medrol dosepack, xyzal, and amoxicillin. She is advised to take medications as prescribed and follow up with dentist and pcp for further evaluation and management. She verbalized understanding of and agreement with plan of care. Critical care attestation.: If time is entered above; I have spent that time in minutes in the direct care of this critically ill patient, excluding procedure time. ED Disposition Clinical Impression: Dental abscess Headache Qualifiers: Headache type: unspecified Headache chronicity pattern: acute headache Intractability: not intractable Qualified Code(s): R51.9 - Headache, unspecified Disposition: 01 HOME / SELF CARE / HOMELESS Is pt being admited?: No Does the pt Need Aspirin: No Condition: Stable Instructions: Dental Abscess, [id number], Sinus Headache, [id number] Additional Instructions: Take medications as prescribed. Follow-up with primary care provider if no improvement or worsening symptoms. Prescriptions: Amoxicillin [Amoxicillin TAB] 875 mg PO BID #14 tab methylPREDNISolone [Medrol 4MG DOSEPAK (21 tabs)] 4 mg PO DAILY #1 pack Levocetirizine Dihydrochloride [Xyzal] 5 mg PO QPM #15 tab Referrals: ASHLEE PAYTON MD [Primary Care Provider] - 3-5 Days Forms: Work/School Release Form(ED) Time of Disposition: 05:17
== END 2022-03-03 06:00 | disposition home or self-care (01) ==
LOC: ED 21:35
DX: K04.7 Periapical abscess without sinus (principal); R51.9 Headache, unspecified; I10 Essential (primary) hypertension; E11.9 Type 2 diabetes mellitus without complications; F17.200 Nicotine dependence, unspecified, uncomplicated; Z79.899 Other long term (current) drug therapy
CPT/HCPCS: 96372; 99282; J1100

== ENCOUNTER 2022-04-02 23:38 | Emergency (ER) | payer SELFPAY ==
[2022-04-03] MEDS ORDERED: LIDOCAINE VISCOUS 2% 15 ML ORAL LIQD MM ONE (04:44)
[2022-04-03] MEDS ORDERED: KETOROLAC 60 MG/2 ML INJ IM STA (04:44)
--- NOTE | 2022-04-03 05:13 | Emergency Department Report ---
ED ENT HPI - General Chief complaint: Dental/Oral Stated complaint: HEAD,TOOTH PAIN Time Seen by Provider: 04/03/22 04:28 Source: patient Mode of arrival: Ambulatory Limitations: No Limitations - History of Present Illness MD complaint: tooth pain -: Gradual, month(s) 1 - pain to this region Severity: moderate Quality: aching, dull Consistency: constant Worsens with: eating Context- Dental: history of dental caries, poor dental care Associated Symptoms: toothache. denies: sore throat, tinnitus, discharge from ear, rhinorrhea - Related Data Previous Rx's Medication Instructions Recorded Last Taken Type Albuterol Mdi (or & Nicu Only) 2 puff IH QID PRN #200 inhalation 02/10/18 Unknown Rx [ProAir HFA Inhaler] Amoxicillin/Potassium Clav 1 each PO BID #20 tablet 02/10/18 Unknown Rx [Augmentin 875-125 Tablet] Prednisone [predniSONE 10 mg 10 mg PO .TAPER #1 tab.ds.pk 02/10/18 Unknown Rx (6-Day Pack, 21 Tabs)] Lidocaine Viscous 2% 5 ml MM Q3H PRN #120 udc 10/23/18 Unknown Rx Nystas/Diphen/Xyl Visc/Mylanta 15 ml MM Q6H PRN 5 Days ml 01/07/19 Unknown Rx [Magic Mouthwash] Ibuprofen [Motrin 600 MG tab] 600 mg PO Q8H PRN #20 tablet 06/16/19 Unknown Rx guaiFENesin [Robitussin] 5 ml PO TID PRN #100 ml 01/10/20 Unknown Rx Clindamycin [Clindamycin CAP] 300 mg PO Q6H 7 Days #28 capsule 04/24/21 Unknown Rx Ibuprofen [Motrin 800 MG tab] 800 mg PO Q8HR PRN #30 tablet 04/24/21 Unknown Rx dexAMETHasone [Decadron] 4 mg PO BID 3 Days #6 tablet 04/24/21 Unknown Rx Acetaminophen [Tylenol] 500 mg PO Q6HR PRN #40 tablet 10/25/21 Unknown Rx Acetaminophen/Codeine [Tylenol 1 tab PO Q6H PRN #12 tab 01/03/22 Unknown Rx /Codeine # 3 tab] Baclofen 20 mg PO Q12H PRN #20 tablet 10/26/21 Unknown Rx Amoxicillin [Amoxicillin TAB] 875 mg PO BID #14 tab 03/03/22 Unknown Rx Levocetirizine Dihydrochloride 5 mg PO QPM #15 tab 03/03/22 Unknown Rx [Xyzal] methylPREDNISolone [Medrol 4MG 4 mg PO DAILY #1 pack 03/03/22 Unknown Rx DOSEPAK (21 tabs)] Amoxicillin [Amoxicillin Chew] 500 mg PO Q8H #60 04/03/22 Unknown Rx Chlorhexidine Mouthwash [Peridex] 15 ml MM BID #1 bottle 04/03/22 Unknown Rx Lidocaine Viscous 2% 5 ml MM Q3H PRN #120 udc 04/03/22 Unknown Rx traMADoL [Ultram] 50 mg PO Q6HR PRN #20 tablet 04/03/22 Unknown Rx Allergies Allergy/AdvReac Type Severity Reaction Status Date / Time No Known Allergies Allergy Verified 07/23/19 19:17 ED Dental HPI - General Chief complaint: Dental/Oral Stated complaint: HEAD,TOOTH PAIN Time Seen by Provider: 04/03/22 04:28 Source: patient Mode of arrival: Ambulatory Limitations: No Limitations - Related Data Previous Rx's Medication Instructions Recorded Last Taken Type Albuterol Mdi (or & Nicu Only) 2 puff IH QID PRN #200 inhalation 02/10/18 Unknown Rx [ProAir HFA Inhaler] Amoxicillin/Potassium Clav 1 each PO BID #20 tablet 02/10/18 Unknown Rx [Augmentin 875-125 Tablet] Prednisone [predniSONE 10 mg 10 mg PO .TAPER #1 tab.ds.pk 02/10/18 Unknown Rx (6-Day Pack, 21 Tabs)] Lidocaine Viscous 2% 5 ml MM Q3H PRN #120 udc 10/23/18 Unknown Rx Nystas/Diphen/Xyl Visc/Mylanta 15 ml MM Q6H PRN 5 Days ml 01/07/19 Unknown Rx [Magic Mouthwash] Ibuprofen [Motrin 600 MG tab] 600 mg PO Q8H PRN #20 tablet 06/16/19 Unknown Rx guaiFENesin [Robitussin] 5 ml PO TID PRN #100 ml 01/10/20 Unknown Rx Clindamycin [Clindamycin CAP] 300 mg PO Q6H 7 Days #28 capsule 04/24/21 Unknown Rx Ibuprofen [Motrin 800 MG tab] 800 mg PO Q8HR PRN #30 tablet 04/24/21 Unknown Rx dexAMETHasone [Decadron] 4 mg PO BID 3 Days #6 tablet 04/24/21 Unknown Rx Acetaminophen [Tylenol] 500 mg PO Q6HR PRN #40 tablet 10/25/21 Unknown Rx Acetaminophen/Codeine [Tylenol 1 tab PO Q6H PRN #12 tab 10/26/21 Unknown Rx /Codeine # 3 tab] Baclofen 20 mg PO Q12H PRN #20 tablet 10/26/21 Unknown Rx Amoxicillin [Amoxicillin TAB] 875 mg PO BID #14 tab 03/03/22 Unknown Rx Levocetirizine Dihydrochloride 5 mg PO QPM #15 tab 03/03/22 Unknown Rx [Xyzal] methylPREDNISolone [Medrol 4MG 4 mg PO DAILY #1 pack 03/03/22 Unknown Rx DOSEPAK (21 tabs)] Amoxicillin [Amoxicillin Chew] 500 mg PO Q8H #60 04/03/22 Unknown Rx Chlorhexidine Mouthwash [Peridex] 15 ml MM BID #1 bottle 04/03/22 Unknown Rx Lidocaine Viscous 2% 5 ml MM Q3H PRN #120 udc 04/03/22 Unknown Rx traMADoL [Ultram] 50 mg PO Q6HR PRN #20 tablet 04/03/22 Unknown Rx Allergies Allergy/AdvReac Type Severity Reaction Status Date / Time No Known Allergies Allergy Verified 07/23/19 19:17 ED Review of Systems ROS: Stated complaint: HEAD,TOOTH PAIN Other details as noted in HPI Comment: All other systems reviewed and negative ED Past Medical Hx - Past Medical History Previous Medical History?: Yes Hx Hypertension: Yes (during ) Hx Diabetes: Yes (gestational) Additional medical history: Diabetic and refuse to take medications for diabetes - Surgical History Past Surgical History?: No - Social History Smoking Status: Never Smoker Substance Use Type: None - Medications Home Medications: Home Medications Medication Instructions Recorded Confirmed Last Taken Type Albuterol Mdi (or & Nicu Only) 2 puff IH QID PRN #200 inhalation 02/10/18 Unknown Rx [ProAir HFA Inhaler] Amoxicillin/Potassium Clav 1 each PO BID #20 tablet 02/10/18 Unknown Rx [Augmentin 875-125 Tablet] Prednisone [predniSONE 10 mg 10 mg PO .TAPER #1 tab.ds.pk 02/10/18 Unknown Rx (6-Day Pack, 21 Tabs)] Lidocaine Viscous 2% 5 ml MM Q3H PRN #120 udc 10/23/18 Unknown Rx Nystas/Diphen/Xyl Visc/Mylanta 15 ml MM Q6H PRN 5 Days ml 01/07/19 Unknown Rx [Magic Mouthwash] Ibuprofen [Motrin 600 MG tab] 600 mg PO Q8H PRN #20 tablet 06/16/19 Unknown Rx guaiFENesin [Robitussin] 5 ml PO TID PRN #100 ml 01/10/20 Unknown Rx Clindamycin [Clindamycin CAP] 300 mg PO Q6H 7 Days #28 capsule 04/24/21 Unknown Rx Ibuprofen [Motrin 800 MG tab] 800 mg PO Q8HR PRN #30 tablet 04/24/21 Unknown Rx dexAMETHasone [Decadron] 4 mg PO BID 3 Days #6 tablet 04/24/21 Unknown Rx Acetaminophen [Tylenol] 500 mg PO Q6HR PRN #40 tablet 10/25/21 Unknown Rx Acetaminophen/Codeine [Tylenol 1 tab PO Q6H PRN #12 tab 10/26/21 Unknown Rx /Codeine # 3 tab] Baclofen 20 mg PO Q12H PRN #20 tablet 10/26/21 Unknown Rx Amoxicillin [Amoxicillin TAB] 875 mg PO BID #14 tab 03/03/22 Unknown Rx Levocetirizine Dihydrochloride 5 mg PO QPM #15 tab 03/03/22 Unknown Rx [Xyzal] methylPREDNISolone [Medrol 4MG 4 mg PO DAILY #1 pack 03/03/22 Unknown Rx DOSEPAK (21 tabs)] Amoxicillin [Amoxicillin Chew] 500 mg PO Q8H #60 04/03/22 Unknown Rx Chlorhexidine Mouthwash [Peridex] 15 ml MM BID #1 bottle 04/03/22 Unknown Rx Lidocaine Viscous 2% 5 ml MM Q3H PRN #120 udc 04/03/22 Unknown Rx traMADoL [Ultram] 50 mg PO Q6HR PRN #20 tablet 04/03/22 Unknown Rx ED Physical Exam - General Limitations: No Limitations General appearance: alert, in no apparent distress - Head Head exam: Present: atraumatic, normocephalic - Eye Eye exam: Present: normal appearance - ENT ENT exam: Present: mucous membranes moist, other (Diffuse dental caries and pain tenderness to tooth #14 [id number] normal upper and lower molar region. Airway is patent tongue uvula uvula midline no peritonsillar abscesses present. No discharge or bleeding.Palpation no TMJ syndrome) - Neck Neck exam: Present: normal inspection - Respiratory Respiratory exam: Present: normal lung sounds bilaterally. Absent: respiratory distress - Cardiovascular Cardiovascular Exam: Present: regular rate, normal rhythm. Absent: systolic murmur, diastolic murmur, rubs, gallop - GI/Abdominal GI/Abdominal exam: Present: soft, normal bowel sounds - Extremities Exam Extremities exam: Present: normal inspection - Back Exam Back exam: Present: normal inspection - Neurological Exam Neurological exam: Present: alert, oriented X3 - Psychiatric Psychiatric exam: Present: normal affect, normal mood - Skin Skin exam: Present: warm, dry, intact, normal color. Absent: rash ED Course Vital Signs 04/03/22 01:16 Temperature 98.4 F Pulse Rate 90 Respiratory 18 Rate Blood Pressure 122/73 O2 Sat by Pulse 100 Oximetry Critical care attestation.: If time is entered above; I have spent that time in minutes in the direct care of this critically ill patient, excluding procedure time. ED Disposition Clinical Impression: Infected dental caries, Dentalgia Disposition: 01 HOME / SELF CARE / HOMELESS Is pt being admited?: No Does the pt Need Aspirin: No Condition: Stable Instructions: Skin Abscess, Preventive Dental Care, Adult, Acute Pain, Adult Prescriptions: Amoxicillin [Amoxicillin Chew] 500 mg PO Q8H #60 Lidocaine Viscous 2% 5 ml MM Q3H PRN #120 udc PRN Reason: Pain, Moderate (4-6) Chlorhexidine Mouthwash [Peridex] 15 ml MM BID #1 bottle traMADoL [Ultram] 50 mg PO Q6HR PRN #20 tablet PRN Reason: Pain Referrals: [facility] [Outside] - 3-5 Days
[2022-04-03 06:25] VITALS: BP 146/76
== END 2022-04-03 05:42 | disposition home or self-care (01) ==
LOC: ED 23:38
DX: K04.7 Periapical abscess without sinus (principal); K08.89 Other specified disorders of teeth and supporting structures; I10 Essential (primary) hypertension; E11.9 Type 2 diabetes mellitus without complications; Z79.899 Other long term (current) drug therapy
CPT/HCPCS: 96372; 99282; J1885